=== PATIENT | male | born 1990 | race Caucasian/White ===

== ENCOUNTER 2019-09-15 16:15 | Emergency (ER) | payer SELFPAY ==
[2019-09-15] MEDS ORDERED: Sodium Chloride 0.9% 1,000 ML IV ONE (16:33)
[2019-09-15] MEDS ORDERED: HYDROmorphone 2 MG/ML Syringe IVPUSH ONE ×2 (16:33→17:55)
[2019-09-15] MEDS ORDERED: Ondansetron 4 MG/2 ML SDV IVPUSH ONE (16:33)
--- NOTE | 2019-09-15 16:37 | EDM.PDOC ---
ED HPI GENERAL MEDICAL PROBLEM - General Chief Complaint: Abdominal Pain Stated Complaint: ABDOMINAL PAIN Time Seen by Provider: 09/15/19 16:17 Source of Information: Reports: Patient History Limitations: Reports: No Limitations - History of Present Illness INITIAL COMMENTS - FREE TEXT/NARRATIVE: HISTORY OF PRESENT ILLNESS: Patient is a 29-year-old male who presents with abdominal pain and diarrhea for the past 3 days. Reports mid epigastric nonradiating abdominal pain which is waxing and waning in nature and currently 3 out of 10 in severity. It described as dull with occasional episodes of sharp pain. Reports associated diarrhea, multiple episodes per day with intermittent bright red blood. Denies any nausea or emesis. Denies any chest pain or dyspnea. Ports "hot flashes" but denies any documented fever at home. No neck stiffness or rash. No urinary symptoms. No prior abdominal surgeries. REVIEW OF SYSTEMS: Other than the symptoms associated with the present events, the following is reported with regard to recent health: General: (-) fever. HENT: (-) congestion. Respiratory: (-) cough. Cardiovascular: (-) chest pain. GI: (+) abdominal pain. : (-) urinary complaints. Musculoskeletal: (-) other aches or pains. Endocrine: (+) generalized fatigue Neurological: (-) localized weakness. Skin: (-) rash PAST MEDICAL HISTORY: reviewed as per nursing notes SOCIAL HISTORY: reviewed as per nursing notes, MEDICATIONS: Per nurse's note ALLERGIES: Per nurse's note, reviewed by me PHYSICAL EXAMINATION: GENERALIZED APPEARANCE: well developed, well nourished in mild to moderate distress VITAL SIGNS: Per nurse's note, reviewed by me SKIN: Warm, dry; (-) cyanosis; (-) rash. HEAD: (-) scalp swelling, (-) tenderness. EYES: (-) conjunctival pallor, (-) scleral icterus. ENMT: (-) stridor; mucous membranes moist. NECK: (-) tenderness, (-) stiffness, CHEST AND RESPIRATORY: (-) rales, (-) rhonchi, (-) wheezes; breath sounds equal bilaterally. HEART AND CARDIOVASCULAR: (-) irregularity; (-) murmur, (-) gallop. ABDOMEN AND GI: Soft; (+) diffuse tenderness, (-) guarding, (-) rebound, (-) palpable masses, (-) flank or CVAT RECTAL: hemoccult negative (control positive). stool brown, good rectal tone. assistant women's soccer coach: JAYLEEN German EXTREMITIES: (-) deformity, (-) edema. NEURO AND PSYCH: Alert. Cranial nerves grossly intact; strength symmetric. gait steady DIAGNOSTICS: CT abd/pelvis: read by radiologist, reviewed by myself Labs reviewed and resulted as below EMERGENCY DEPARTMENT COURSE AND TREATMENT: Patient's condition improved during Emergency Department evaluation. Given IVF, Zofran, Dilaudid. Labs and diagnostics ordered. The patient presents to the ED with abdominal pain. After history, physical exam, and diagnostic evaluation, the etiology for the pain is unclear. Laboratory data was ordered. Hemoccult Negative and hemoglobin/ hematocrit within normal limits. Patient hemodynamically stable. On serial exams, there are no peritoneal signs. Abdomen is soft without guarding or rebound. I think there is a very low probability of significant abdominal pathology based on today's evaluation. The patient is advised to have a followup tomorrow for a recheck and repeat abdominal exam. I also advised to return to the emergency department immediately for significant pain, fevers, not tolerating oral food or fluid, or new complaints. Also to return with any change in duration, severity, or character of abdominal pain. Patient expressed verbal understanding. PLAN AND FOLLOW-UP: Patient received written and verbal instructions regarding this condition. Return to ED immediately with any new or worsening symptoms. Follow up to be arranged by patient with pcp in 1days for further evaluation. Given discharge precautions. Patient expressed verbal understanding. abd Pain Score (Numeric/FACES): 3 - Related Data Allergies Allergy/AdvReac Type Severity Reaction Status Date / Time No Known Allergies Allergy Verified 09/15/19 16:32 Home Meds: Home Meds . [No Known Home Meds] 09/15/19 [History] ED ROS GENERAL - Review of Systems Review Of Systems: See Below (see dictation) ED EXAM, GI/ABD - Physical Exam Exam: See Below (see dictation) Course - Vital Signs Last Recorded V/S: Last Vital Signs Temp 99.0 F 09/15/19 16:29 Pulse 90 09/15/19 18:35 Resp 18 09/15/19 18:35 BP 138/95 H 09/15/19 18:35 Pulse Ox 97 09/15/19 18:35 - Orders/Labs/Meds Orders: Active Orders 24 hr Category Date Time Status Fecal Occult Blood Collection [RC] ASDIRECTED Care 09/15/19 16:33 Active Labs: Laboratory Tests 09/15/19 09/15/19 Range/Units 16:50 16:50 WBC 10.52 (4.0-11.0) K/uL RBC 5.16 (4.50-5.90) M/uL Hgb 14.8 (13.0-17.0) g/dL Hct 42.5 (38.0-50.0) % MCV 82.4 (80.0-98.0) fL MCH 28.7 (27.0-32.0) pg MCHC 34.8 (31.0-37.0) g/dL RDW Std Deviation 39.1 (28.0-62.0) fl RDW Coeff of Liliya 13 (11.0-15.0) % Plt Count 315 (150-400) K/uL MPV 9.00 (7.40-12.00) fL Neut % (Auto) 67.7 (48.0-80.0) % Lymph % (Auto) 26.1 (16.0-40.0) % [place] % (Auto) 5.9 (0.0-15.0) % Eos % (Auto) 0.1 (0.0-7.0) % Baso % (Auto) 0.2 (0.0-1.5) % Neut # (Auto) 7.1 H (1.4-5.7) K/uL Lymph # (Auto) 2.8 H (0.6-2.4) K/uL [place] # (Auto) 0.6 (0.0-0.8) K/uL Eos # (Auto) 0.0 (0.0-0.7) K/uL Baso # (Auto) 0.0 (0.0-0.1) K/uL Nucleated RBC % 0.0 /100WBC Nucleated RBCs # 0 K/uL Sodium 144 (136-148) mmol/L Potassium 3.5 (3.5-5.1) mmol/L Chloride 105 (98-107) mmol/L Carbon Dioxide 21.8 (21.0-32.0) mmol/L BUN 10 (7.0-18.0) mg/dL Creatinine 0.9 (0.8-1.3) mg/dL Est Cr Clr Drug Dosing 134.12 mL/min Estimated GFR (MDRD) > 60.0 ml/min Glucose 113 H (74-106) mg/dL Calcium 9.5 (8.5-10.1) mg/dL Total Bilirubin 0.4 (0.2-1.0) mg/dL AST 17 (15-37) IU/L ALT 42 (14-63) IU/L Alkaline Phosphatase 66 (46-116) U/L Total Protein 8.7 H (6.4-8.2) g/dL Albumin 4.8 (3.4-5.0) g/dL Globulin 3.9 (2.6-4.0) g/dL Albumin/Globulin Ratio 1.2 (0.9-1.6) Lipase 257 (73-393) U/L Meds: Medications Discontinued Medications Generic Name Dose Route Start Last Admin Trade Name Freq PRN Reason Stop Dose Admin Hydromorphone HCl 1 mg 09/15/19 16:33 09/15/19 16:57 Dilaudid IVPUSH 09/15/19 16:34 1 mg ONETIME ONE Administration Hydromorphone HCl 1 mg 09/15/19 17:55 09/15/19 18:34 Dilaudid IVPUSH 09/15/19 17:56 1 mg ONETIME ONE Administration Sodium Chloride 1,000 mls @ 1,000 mls/hr 09/15/19 16:33 09/15/19 16:55 Normal Saline IV 09/15/19 17:32 1,000 mls/hr .Bolus ONE Administration Iopamidol 100 ml 09/15/19 18:15 09/15/19 18:15 Isovue Multipack-370 (76%) IVPUSH 09/15/19 18:16 100 ml ONETIME STA Administration Ondansetron HCl 4 mg 09/15/19 16:33 09/15/19 16:55 Zofran IVPUSH 09/15/19 16:34 4 mg ONETIME ONE Administration Departure - Departure Time of Disposition: 18:57 Disposition: Home, Self-Care 01 Condition: Good Clinical Impression: Abdominal pain, Diarrhea - Discharge Information *PRESCRIPTION DRUG MONITORING PROGRAM REVIEWED*: Not Applicable *COPY OF PRESCRIPTION DRUG MONITORING REPORT IN PATIENT ARAMIS: Not Applicable Instructions: Diarrhea, Adult, Abdominal Pain, Adult, [id number] Referrals: Christian Gomez [Ordering Only Provider] - 1 Day () Forms: ED Department Discharge Additional Instructions: The following information is given to patients seen in the emergency department who are being discharged to home. This information is to outline your options for follow-up care. We provide all patients seen in our emergency department with a follow-up referral. The need for follow-up, as well as the timing and circumstances, are variable depending upon the specifics of your emergency department visit. If you don't have a primary care physician on staff, we will provide you with a referral. We always advise you to contact your personal physician following an emergency department visit to inform them of the circumstance of the visit and for follow-up with them and/or the need for any referrals to a consulting specialist. The emergency department will also refer you to a specialist when appropriate. This referral assures that you have the opportunity for follow-up care with a specialist. All of these measure are taken in an effort to provide you with optimal care, which includes your follow-up. Under all circumstances we always encourage you to contact your private physician who remains a resource for coordinating your care. When calling for follow-up care, please make the office aware that this follow-up is from your recent emergency room visit. If for any reason you are refused follow-up, please contact the [facility] Emergency Department at and asked to speak to the emergency department charge nurse. Sepsis Event Note - Evaluation Sepsis Screening Result: No Definite Risk - Focused Exam Vital Signs: Vital Signs Temp Pulse Resp BP Pulse Ox 09/15/19 18:35 90 18 138/95 H 97 09/15/19 17:48 103 H 18 136/89 98 09/15/19 16:29 99.0 F 100 16 146/109 H 97 Date Exam was Performed: 09/15/19 Time Exam was Performed: 18:57 - My Orders Last 24 Hours: My Active Orders 09/15/19 16:33 Fecal Occult Blood Collection [RC] ASDIRECTED - Assessment/Plan Last 24 Hours: My Active Orders 09/15/19 16:33 Fecal Occult Blood Collection [RC] ASDIRECTED
[2019-09-15 17:44] LABS: BLOOD UREA NITROGEN,BUN 10 mg/dL (7.0-18.0); CARBON DIOXIDE,CO2 21.8 mmol/L (21.0-32.0); CHLORIDE,CL 105 mmol/L (98-107); GLUCOSE RANDOM 113 mg/dL (74-106); LIPASE 257 U/L (73-393); POTASSIUM,K 3.5 mmol/L (3.5-5.1); SODIUM,NA 144 mmol/L (136-148)
[2019-09-15] MEDS ORDERED: Iopamidol 755 MG/ML 500 ML Multipack Bottle IVPUSH STA (18:15)
--- NOTE | 2019-09-15 18:55 | CT ---
CT abdomen and pelvis Technique: Multiple axial sections were obtained from above the dome of the diaphragm inferiorly through the pubic symphysis. Intravenous contrast was utilized. No oral contrast has been given. Findings: Visualized lung bases show nothing acute. Liver contains no focal abnormality. Spleen also appears within normal limits. Adrenal glands show no nodule. Pancreas shows no discrete abnormality. Soft tissue nodule noted off the tail of the pancreas believed to represent accessory splenic tissue. Kidneys show symmetric contrast enhancement without hydronephrosis or mass. Gallbladder contains no calcified gallstones. Aorta shows no aneurysm. No retroperitoneal adenopathy or mesenteric abnormalities are seen. No pelvic mass or adenopathy is seen. No free fluid or inflammatory change is seen. Appendix appears within normal limits. 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 Several minimal endplate concavities are seen superiorly within the thoracic spine which appear old. Impression: 1. Findings as noted above which are felt to be nonacute. 2. No additional abnormality is appreciated on CT study of the abdomen and pelvis. Diagnostic code #2 Study was dictated in [place] Standard Time
== END 2019-09-15 19:17 | disposition home or self-care (01) ==
LOC: MW.ED 16:15
DX: R10.13 Epigastric pain (principal); R19.7 Diarrhea, unspecified
CPT/HCPCS: 74177; 80053; 83690; 85025; 96361; 96374; 96375; 96376; 99284; J1170; J2405; J7030; Q9967

== ENCOUNTER 2019-09-19 20:36 | Observation (INO) | payer SELFPAY ==
--- NOTE | 2019-09-19 20:41 | EDM.PDOC ---
ED HPI GENERAL MEDICAL PROBLEM - General Chief Complaint: Abdominal Pain Stated Complaint: STOMACK PAIN Time Seen by Provider: 09/19/19 20:40 Source of Information: Reports: Patient History Limitations: Reports: No Limitations - History of Present Illness INITIAL COMMENTS - FREE TEXT/NARRATIVE: HISTORY AND PHYSICAL: History of present illness: Patient is a 29-year-old male who presents to the emergency room today with complaints of right upper abdominal pain. He reports that pain started just a few hours prior to arrival and describes it as sharp stabbing pain to the right upper quadrant/lower rib area. Patient was seen in the emergency room on 2019 for the same abdominal pain. He did have lab work and CT of the abdomen and pelvis, both of which were unremarkable. He was encouraged to follow-up with his primary care provider, which he did not do. States after leaving the emergency room last week he did feel improved with the exception of continuing to have multiple loose stools per day. Does continue to have intermittent streaking of "blood" in his stools. Has not had any blood in his stools today. Patient denies any fever, chills, headache, change in vision, syncope or near syncope. Denies any chest pain, back pain, shortness of breath or cough. Denies any vomiting, constipation or dysuria. Patient has been eating and drinking appropriately. Review of systems: As per history of present illness and below otherwise all systems reviewed and negative. Past medical history: As per history of present illness and as reviewed below otherwise noncontributory. Surgical history: As per history of present illness and as reviewed below otherwise noncontributory. Social history: See social history for further information Family history: As per history of present illness and as reviewed below otherwise noncontributory. Physical exam: General: Well-developed and well-nourished 29-year-old male. Alert and oriented. Patient is anxious appearing and grabbing at his stomach saying it is painful - unable to sit still on cot. Appears irritated with my physical examination although is cooperative with care. HEENT: Atraumatic, normocephalic, pupils equal and reactive bilaterally, negative for conjunctival pallor or scleral icterus, mucous membranes moist, throat clear, neck supple, nontender, trachea midline. No drooling or trismus noted. No meningeal signs. No hot potato voice noted. Lungs: Diminished to RLL otherwise clear to auscultation, breath sounds equal bilaterally, chest nontender. Heart: S1S2, regular rate and rhythm without overt murmur Abdomen: Soft, nondistended, right upper quadrant tenderness. Negative for masses or hepatosplenomegaly. Negative for costovertebral tenderness. Rectal: This was done with consent and a client resource specialist at the bedside. Negative fecal occult stool Pelvis: Stable nontender. Skin: Intact, warm, dry. No lesions or rashes noted. Extremities: Atraumatic, moves all extremities per self without difficulty or deficits, negative for cords or calf pain. Neurovascular unremarkable. Neuro: Awake, alert, oriented. Cranial nerves II through XII unremarkable. Cerebellum unremarkable. Motor and sensory unremarkable throughout. Exam nonfocal. Notes: He does have a leukocytosis. X-ray shows a right middle lobe pneumonia. Has a bladder infection. He states that his pain is "unbearable". Not have been able to get a stool sample while here. Due to the patient's physical presentation and diagnostics I will keep him for IV antibiotics and further observation and management. Dr. Moctezuma consulted and is agreeable to keeping this patient for further care. Patient is aware and agreeable. Diagnostics: CBC, CMP, Lipase, UA, chest x-ray, gonorrhea/chlamydia Therapeutics: IV fluids, Toradol, Ativan, Rocephin Dilaudid, azithromycin Impression: Pneumonia, Right UTI Diarrhea, unspecified Plan: Observation admission to [facility] Definitive disposition and diagnosis as appropriate pending reevaluation and review of above. Abdominal Pain Score (Numeric/FACES): 10 - Related Data Allergies Allergy/AdvReac Type Severity Reaction Status Date / Time No Known Allergies Allergy Verified 09/19/19 20:40 Home Meds: Home Meds Pantoprazole Sodium [Protonix] 40 mg PO DAILY #14 tablet. 09/15/19 [Rx] Past Medical History - Past Health History Medical/Surgical History: Denies Medical/Surgical History - Infectious Disease History Infectious Disease History: Reports: Chicken Pox Social & Family History - Family History Family Medical History: Noncontributory - Caffeine Use Caffeine Use: Reports: None ED ROS GENERAL - Review of Systems Review Of Systems: Comprehensive ROS is negative, except as noted in HPI. ED EXAM, GI/ABD - Physical Exam Exam: See Below (See dictation) Course - Vital Signs Last Recorded V/S: Last Vital Signs Temp 97.7 F 09/19/19 20:40 Pulse 110 H 09/19/19 21:38 Resp 20 09/19/19 21:38 BP 131/82 09/19/19 21:38 Pulse Ox 97 09/19/19 21:38 - Orders/Labs/Meds Orders: Active Orders 24 hr Category Date Time Status Admission Status [Patient Status] [ADT] Stat ADT 09/19/19 21:50 Ordered Fecal Occult Blood Collection [RC] ASDIRECTED Care 09/19/19 20:55 Active CAMPYLOBACTER CULT [MREF] Stat Lab 09/19/19 20:44 Ordered CHLAMYDIA AND GONORRHEA BY TMA Stat Lab 09/19/19 21:47 Ordered CULTURE BLOOD [BC] Stat Lab 09/19/19 20:54 Received CULTURE BLOOD [BC] Stat Lab 09/19/19 21:18 Received OVA & PARASITES BY IMMUNOASSAY [MREF] Stat Lab 09/19/19 20:44 Ordered STOOL CULTURE/SHIGA TOXIN [MREF] Stat Lab 09/19/19 20:44 Ordered cefTRIAXone [Rocephin in Dextrose,Iso-Osm 1 GM/50 ML] 1 Med 09/19/19 21:24 Active gm Premix Bag 1 bag IV ONETIME Blood Culture x2 Reflex Set [OM.PC] Stat Oth 09/19/19 20:47 Ordered Medication Orders Ceftriaxone Sodium/Dextrose 1 (gm/ Premix) 50 mls @ 100 mls/hr IV ONETIME ONE Stop: 09/19/19 21:53 Labs: Laboratory Tests 09/19/19 09/19/19 09/19/19 Range/Units 20:43 20:54 20:54 WBC 13.33 H (4.0-11.0) K/uL RBC 5.40 (4.50-5.90) M/uL Hgb 15.7 (13.0-17.0) g/dL Hct 44.0 (38.0-50.0) % MCV 81.5 (80.0-98.0) fL MCH 29.1 (27.0-32.0) pg MCHC 35.7 (31.0-37.0) g/dL RDW Std Deviation 40.2 (28.0-62.0) fl RDW Coeff of Liliya 14 (11.0-15.0) % Plt Count 324 (150-400) K/uL MPV 9.00 (7.40-12.00) fL Neut % (Auto) 62.8 (48.0-80.0) % Lymph % (Auto) 27.3 (16.0-40.0) % [place] % (Auto) 9.5 (0.0-15.0) % Eos % (Auto) 0.2 (0.0-7.0) % Baso % (Auto) 0.2 (0.0-1.5) % Neut # (Auto) 8.4 H (1.4-5.7) K/uL Lymph # (Auto) 3.6 H (0.6-2.4) K/uL [place] # (Auto) 1.3 H (0.0-0.8) K/uL Eos # (Auto) 0.0 (0.0-0.7) K/uL Baso # (Auto) 0.0 (0.0-0.1) K/uL Nucleated RBC % 0.0 /100WBC Nucleated RBCs # 0 K/uL Sodium 140 (136-148) mmol/L Potassium 3.2 L (3.5-5.1) mmol/L Chloride 101 (98-107) mmol/L Carbon Dioxide 17.8 L (21.0-32.0) mmol/L BUN 10 (7.0-18.0) mg/dL Creatinine 1.1 (0.8-1.3) mg/dL Est Cr Clr Drug Dosing 103.23 mL/min Estimated GFR (MDRD) > 60.0 ml/min Glucose 98 (74-106) mg/dL Calcium 9.5 (8.5-10.1) mg/dL Total Bilirubin 0.6 (0.2-1.0) mg/dL AST 21 (15-37) IU/L ALT 52 (14-63) IU/L Alkaline Phosphatase 67 (46-116) U/L Total Protein 9.1 H (6.4-8.2) g/dL Albumin 4.8 (3.4-5.0) g/dL Globulin 4.3 H (2.6-4.0) g/dL Albumin/Globulin Ratio 1.1 (0.9-1.6) Lipase 230 (73-393) U/L Urine Color YELLOW Urine Appearance HAZY Urine pH 6.0 (5.0-8.0) Ur Specific [place] >= 1.030 (1.001-1.035) Urine Protein >=300 H (NEGATIVE) mg/dL Urine Glucose (UA) NEGATIVE (NEGATIVE) mg/dL Urine Ketones NEGATIVE (NEGATIVE) mg/dL Urine Occult Blood SMALL H (NEGATIVE) Urine Nitrite NEGATIVE (NEGATIVE) Urine Bilirubin NEGATIVE (NEGATIVE) Urine Urobilinogen 0.2 (<2.0) EU/dL Ur Leukocyte Esterase NEGATIVE (NEGATIVE) Urine RBC 0-3 (0-2/HPF) Urine WBC 0-3 (0-5/HPF) Ur Epithelial Cells RARE (NONE-FEW) Urine Bacteria 2+ H (NEGATIVE) Urine Mucus MODERATE (NONE-MOD) Meds: Medications Generic Name Dose Route Start Last Admin Trade Name Freq PRN Reason Stop Dose Admin Ceftriaxone Sodium/Dextrose 1 50 mls @ 100 mls/hr 09/19/19 21:24 gm/ Premix IV 09/19/19 21:53 ONETIME ONE Discontinued Medications Generic Name Dose Route Start Last Admin Trade Name Freq PRN Reason Stop Dose Admin Azithromycin 500 mg 09/19/19 21:49 Zithromax PO 09/19/19 21:50 NOW STA Hydromorphone HCl 1 mg 09/19/19 21:46 Dilaudid IVPUSH 09/19/19 21:47 ONETIME ONE Sodium Chloride 1,000 mls @ 999 mls/hr 09/19/19 20:45 09/19/19 21:13 Normal Saline IV 09/19/19 21:45 999 mls/hr STAT ONE Administration Ketorolac Tromethamine 30 mg 09/19/19 20:45 09/19/19 21:13 Toradol IVPUSH 09/19/19 20:46 30 mg ONETIME ONE Administration Lorazepam 1 mg 09/19/19 20:54 09/19/19 21:13 Ativan IVPUSH 09/19/19 20:55 1 mg ONETIME ONE Administration Ondansetron HCl 4 mg 09/19/19 20:45 09/19/19 21:13 Zofran IVPUSH 09/19/19 20:46 4 mg ONETIME ONE Administration Departure - Departure Time of Disposition: 21:52 Disposition: Refer to Observation Clinical Impression: Pneumonia Qualifiers: Pneumonia type: due to unspecified organism Laterality: right Lung location: middle lobe of lung Qualified Code(s): J18.9 - Pneumonia, unspecified organism UTI (urinary tract infection) Qualifiers: Urinary tract infection type: acute cystitis Hematuria presence: without hematuria Qualified Code(s): N30.00 - Acute cystitis without hematuria Diarrhea Qualifiers: Diarrhea type: unspecified type Qualified Code(s): R19.7 - Diarrhea, unspecified - Discharge Information Referrals: PCP,None [Primary Care Provider] - Forms: ED Department Discharge Sepsis Event Note - Focused Exam Vital Signs: Vital Signs Temp Pulse Resp BP Pulse Ox 09/19/19 21:38 110 H 20 131/82 97 09/19/19 20:40 97.7 F 120 H 20 159/105 H 96 Date Exam was Performed: 09/19/19 Time Exam was Performed: 21:50 - My Orders Last 24 Hours: My Active Orders 09/19/19 20:44 CAMPYLOBACTER CULT [MREF] Stat OVA & PARASITES BY IMMUNOASSAY [MREF] Stat STOOL CULTURE/SHIGA TOXIN [MREF] Stat 09/19/19 20:47 Blood Culture x2 Reflex Set [OM.PC] Stat 09/19/19 20:54 CULTURE BLOOD [BC] Stat 09/19/19 20:55 Fecal Occult Blood Collection [RC] ASDIRECTED 09/19/19 21:18 CULTURE BLOOD [BC] Stat 09/19/19 21:24 cefTRIAXone [Rocephin in Dextrose,Iso-Osm 1 GM/50 ML] 1 gm Premix Bag 1 bag IV ONETIME 09/19/19 21:47 CHLAMYDIA AND GONORRHEA BY TMA Stat 09/19/19 21:50 Admission Status [Patient Status] [ADT] Stat - Assessment/Plan Last 24 Hours: My Active Orders 09/19/19 20:44 CAMPYLOBACTER CULT [MREF] Stat OVA & PARASITES BY IMMUNOASSAY [MREF] Stat STOOL CULTURE/SHIGA TOXIN [MREF] Stat 09/19/19 20:47 Blood Culture x2 Reflex Set [OM.PC] Stat 09/19/19 20:54 CULTURE BLOOD [BC] Stat 09/19/19 20:55 Fecal Occult Blood Collection [RC] ASDIRECTED 09/19/19 21:18 CULTURE BLOOD [BC] Stat 09/19/19 21:24 cefTRIAXone [Rocephin in Dextrose,Iso-Osm 1 GM/50 ML] 1 gm Premix Bag 1 bag IV ONETIME 09/19/19 21:47 CHLAMYDIA AND GONORRHEA BY TMA Stat 09/19/19 21:50 Admission Status [Patient Status] [ADT] Stat
[2019-09-19] MEDS ORDERED: Ketorolac 30 MG/ML SDV IVPUSH ONE (20:45)
[2019-09-19] MEDS ORDERED: Sodium Chloride 0.9% 1,000 ML IV ONE (20:45)
[2019-09-19] MEDS ORDERED: Ondansetron 4 MG/2 ML SDV IVPUSH ONE (20:45)
[2019-09-19] MEDS ORDERED: LORazepam 2 MG/ML SDV IVPUSH ONE (20:54)
[2019-09-19] MEDS ORDERED: cefTRIAXone 1 GM in Premix Bag 1 BAG IV ONE (21:24)
[2019-09-19 21:28] LABS: BLOOD UREA NITROGEN,BUN 10 mg/dL (7.0-18.0); CARBON DIOXIDE,CO2 17.8 mmol/L (21.0-32.0); CHLORIDE,CL 101 mmol/L (98-107); GLUCOSE RANDOM 98 mg/dL (74-106); LIPASE 230 U/L (73-393); POTASSIUM,K 3.2 mmol/L (3.5-5.1); SODIUM,NA 140 mmol/L (136-148)
--- NOTE | 2019-09-19 21:41 | CR ---
INDICATION: Acute chest pain. COMPARISON: None. FINDINGS/IMPRESSION: Chest, two views. Suggestion of minimal patchy infiltrate in the right middle lobe obscuring the right heart border, suspicious for small area of pneumonia. Left lung appears clear. No pleural effusions. Normal heart size. Unremarkable bony structures. Dictated by Cong Flores MD @ 09/19/2019 9:38:02 PM Dictated by: Cong Flores MD @ 09/19/2019 21:38:47 (Electronically Signed)
[2019-09-19] MEDS ORDERED: HYDROmorphone 1 MG/ML Syringe IVPUSH ONE (21:46)
[2019-09-19] MEDS ORDERED: Azithromycin 250 MG Tab PO STA (21:49)
[2019-09-20] MEDS ORDERED: Acetaminophen 325 MG Tab PO PRN (00:20)
[2019-09-20] MEDS ORDERED: Ibuprofen 400 MG Tab PO PRN (00:23)
[2019-09-20] MEDS: Sodium Chloride 0.9% 1,000 ML IV SCH ×2 (00:53→10:17)
[2019-09-20] MEDS ORDERED: Ondansetron 4 MG/2 ML SDV IVPUSH PRN (01:19)
[2019-09-20] MEDS ORDERED: Pantoprazole 40 MG in Sodium Chloride 0.9% 10 ML IV ONE (02:57)
[2019-09-20] MEDS: Morphine 2 MG/ML Syringe IVPUSH PRN ×2 (03:23→08:16)
[2019-09-20 07:12] LABS: BLOOD UREA NITROGEN,BUN 13 mg/dL (7.0-18.0); CARBON DIOXIDE,CO2 24.4 mmol/L (21.0-32.0); CHLORIDE,CL 106 mmol/L (98-107); GLUCOSE RANDOM 95 mg/dL (74-106); POTASSIUM,K 3.4 mmol/L (3.5-5.1); SODIUM,NA 142 mmol/L (136-148)
[2019-09-20] MEDS: Morphine 4 MG/ML Syringe IVPUSH PRN ×4 (10:22→20:49)
--- NOTE | 2019-09-20 12:07 | PCM.HP.2 ---
H&P History of Present Illness - General Date of Service: 09/20/19 Admit Problem/Dx: Admission Diagnosis/Problem Admission Diagnosis/Problem Pneumonia Source of Information: Patient History Limitations: Reports: No Limitations - History of Present Illness Initial Comments - Free Text/Narative: This 29 year old male with no significant pmh presented to the ED with complaints of diffuse abdominal pain and 15-20 diarrhea stools daily with some noted blood. He reports he was seen in the ED a week or so ago with similar symptoms, CT was obtained which was negative and he was discharged home. He said he did improve slightly but then the pain started to increase again. he denies overt fevers or chills. No chest pain or SOB. Reports stools are brown and always diarrhea, having upwards of 15 daily. Reports nausea with eating and poor appetite. When he does eat he feels bloated and distended. He denies recent travel or antibiotic use, has eating out in the past few weeks prior to falling ill. he denies cough or URI symptoms. Just overall feels ill and has diffuse abdominal pain. No alcohol or recreational drug use and no tobacco use. In the ED leukocytosis noted at 13,330. K+3.2, bicarb 17. CXR showed possible R infiltrate. VS remained stable, afebrile, Rocephin and Azithromycin given in the ED. NS 125 and Morphine for pain. he will be admitted for abdominal pain and possible CAP. Abdominal Pain Score (Numeric/FACES): 6 - Related Data Allergies/Adverse Reactions: Allergies Allergy/AdvReac Type Severity Reaction Status Date / Time No Known Allergies Allergy Verified 09/19/19 23:43 Home Medications: Home Meds Pantoprazole Sodium [Protonix] 40 mg PO DAILY #14 tablet. 09/15/19 [Rx] Past Medical History - Past Health History Medical/Surgical History: Denies Medical/Surgical History Cardiovascular History: Reports: None. Denies: Arrhythmia, Blood Clots/VTE/DVT , CAD, Hypertension, MS Respiratory History: Reports: None. Denies: Asthma, SOB Musculoskeletal History: Reports: None Endocrine/Metabolic History: Reports: None. Denies: Obesity/BMI 30+ - Infectious Disease History Infectious Disease History: Reports: Chicken Pox Social & Family History - Family History Family Medical History: Noncontributory - Tobacco Use Smoking Status *Q: Never Smoker Second Hand Smoke Exposure: No - Caffeine Use Caffeine Use: Reports: Coffee - Recreational Drug Use Recreational Drug Use: No H&P Review of Systems - Review of Systems: Review Of Systems: See Below General: Reports: Malaise. Denies: Fever, Chills HEENT: Reports: No Symptoms. Denies: Headaches, Sinus Congestion Pulmonary: Reports: No Symptoms. Denies: Shortness of Breath Cardiovascular: Reports: No Symptoms. Denies: Chest Pain Gastrointestinal: Reports: Abdominal Pain, Bloody Stool, Diarrhea, Decreased Appetite, Distension, Nausea, Vomiting. Denies: Black Stool Genitourinary: Reports: No Symptoms. Denies: Dysuria, Frequency Skin: Reports: No Symptoms Neurological: Reports: No Symptoms Hematologic/Lymphatic: Reports: No Symptoms Immunologic: Reports: No Symptoms Exam - Exam Exam: See Below - Vital Signs Vital Signs: Last Vital Signs Temp 97.1 F 09/20/19 08:00 Pulse 89 09/20/19 08:00 Resp 20 09/20/19 08:00 BP 146/89 H 09/20/19 08:00 Pulse Ox 97 09/20/19 08:00 Weight: 98.458 kg - Exam General: Alert, Oriented, Cooperative HEENT: Conjunctiva Clear, Pupils Equal. No: Mucosa Moist & Warm [place] (dry) Lungs: Clear to Auscultation, Normal Respiratory Effort Cardiovascular: Regular Rate, Regular Rhythm GI/Abdominal Exam: Soft, Tender (diffusely). No: Normal Bowel Sounds ( hyperactive) Back Exam: Normal Inspection, Full Range of Motion Extremities: Normal Inspection, Normal Range of Motion, Non-Tender, No Pedal Edema Neurological: Cranial Nerves Intact Neuro Extensive - Mental Status: Alert, Oriented x3 Psychiatric: Alert, Normal Affect, Normal Mood - Patient Data Lab Results Last 24 hrs: Laboratory Results - last 24 hr 09/19/19 09/19/19 09/19/19 Range/Units 20:43 20:54 20:54 WBC 13.33 H (4.0-11.0) K/uL RBC 5.40 (4.50-5.90) M/uL Hgb 15.7 (13.0-17.0) g/dL Hct 44.0 (38.0-50.0) % MCV 81.5 (80.0-98.0) fL MCH 29.1 (27.0-32.0) pg MCHC 35.7 (31.0-37.0) g/dL RDW Std Deviation 40.2 (28.0-62.0) fl RDW Coeff of Liliya 14 (11.0-15.0) % Plt Count 324 (150-400) K/uL MPV 9.00 (7.40-12.00) fL Neut % (Auto) 62.8 (48.0-80.0) % Lymph % (Auto) 27.3 (16.0-40.0) % [place] % (Auto) 9.5 (0.0-15.0) % Eos % (Auto) 0.2 (0.0-7.0) % Baso % (Auto) 0.2 (0.0-1.5) % Neut # (Auto) 8.4 H (1.4-5.7) K/uL Lymph # (Auto) 3.6 H (0.6-2.4) K/uL [place] # (Auto) 1.3 H (0.0-0.8) K/uL Eos # (Auto) 0.0 (0.0-0.7) K/uL Baso # (Auto) 0.0 (0.0-0.1) K/uL Nucleated RBC % 0.0 /100WBC Nucleated RBCs # 0 K/uL Sodium 140 (136-148) mmol/L Potassium 3.2 L (3.5-5.1) mmol/L Chloride 101 (98-107) mmol/L Carbon Dioxide 17.8 L (21.0-32.0) mmol/L BUN 10 (7.0-18.0) mg/dL Creatinine 1.1 (0.8-1.3) mg/dL Est Cr Clr Drug Dosing 103.23 mL/min Estimated GFR (MDRD) > 60.0 ml/min Glucose 98 (74-106) mg/dL Calcium 9.5 (8.5-10.1) mg/dL Total Bilirubin 0.6 (0.2-1.0) mg/dL AST 21 (15-37) IU/L ALT 52 (14-63) IU/L Alkaline Phosphatase 67 (46-116) U/L Total Protein 9.1 H (6.4-8.2) g/dL Albumin 4.8 (3.4-5.0) g/dL Globulin 4.3 H (2.6-4.0) g/dL Albumin/Globulin Ratio 1.1 (0.9-1.6) Lipase 230 (73-393) U/L Urine Color YELLOW Urine Appearance HAZY Urine pH 6.0 (5.0-8.0) Ur Specific [place] >= 1.030 (1.001-1.035) Urine Protein >=300 H (NEGATIVE) mg/dL Urine Glucose (UA) NEGATIVE (NEGATIVE) mg/dL Urine Ketones NEGATIVE (NEGATIVE) mg/dL Urine Occult Blood SMALL H (NEGATIVE) Urine Nitrite NEGATIVE (NEGATIVE) Urine Bilirubin NEGATIVE (NEGATIVE) Urine Urobilinogen 0.2 (<2.0) EU/dL Ur Leukocyte Esterase NEGATIVE (NEGATIVE) Urine RBC 0-3 (0-2/HPF) Urine WBC 0-3 (0-5/HPF) Ur Epithelial Cells RARE (NONE-FEW) Urine Bacteria 2+ H (NEGATIVE) Urine Mucus MODERATE (NONE-MOD) 09/20/19 09/20/19 Range/Units 06:07 06:07 WBC 8.53 (4.0-11.0) K/uL RBC 4.78 (4.50-5.90) M/uL Hgb 13.7 (13.0-17.0) g/dL Hct 40.2 (38.0-50.0) % MCV 84.1 (80.0-98.0) fL MCH 28.7 (27.0-32.0) pg MCHC 34.1 (31.0-37.0) g/dL RDW Std Deviation 41.6 (28.0-62.0) fl RDW Coeff of Liliya 14 (11.0-15.0) % Plt Count 255 (150-400) K/uL MPV 9.10 (7.40-12.00) fL Neut % (Auto) 51.3 (48.0-80.0) % Lymph % (Auto) 33.9 (16.0-40.0) % [place] % (Auto) 13.5 (0.0-15.0) % Eos % (Auto) 1.1 (0.0-7.0) % Baso % (Auto) 0.2 (0.0-1.5) % Neut # (Auto) 4.4 (1.4-5.7) K/uL Lymph # (Auto) 2.9 H (0.6-2.4) K/uL [place] # (Auto) 1.2 H (0.0-0.8) K/uL Eos # (Auto) 0.1 (0.0-0.7) K/uL Baso # (Auto) 0.0 (0.0-0.1) K/uL Nucleated RBC % 0.0 /100WBC Nucleated RBCs # 0 K/uL Sodium 142 (136-148) mmol/L Potassium 3.4 L (3.5-5.1) mmol/L Chloride 106 (98-107) mmol/L Carbon Dioxide 24.4 (21.0-32.0) mmol/L BUN 13 (7.0-18.0) mg/dL Creatinine 0.9 (0.8-1.3) mg/dL Est Cr Clr Drug Dosing 134.12 mL/min Estimated GFR (MDRD) > 60.0 ml/min Glucose 95 (74-106) mg/dL Calcium 8.7 (8.5-10.1) mg/dL Total Bilirubin 0.6 (0.2-1.0) mg/dL AST 14 L (15-37) IU/L ALT 41 (14-63) IU/L Alkaline Phosphatase 54 (46-116) U/L Total Protein 7.2 (6.4-8.2) g/dL Albumin 3.7 (3.4-5.0) g/dL Globulin 3.5 (2.6-4.0) g/dL Albumin/Globulin Ratio 1.1 (0.9-1.6) Lipase (73-393) U/L Urine Color Urine Appearance Urine pH (5.0-8.0) Ur Specific [place] (1.001-1.035) Urine Protein (NEGATIVE) mg/dL Urine Glucose (UA) (NEGATIVE) mg/dL Urine Ketones (NEGATIVE) mg/dL Urine Occult Blood (NEGATIVE) Urine Nitrite (NEGATIVE) Urine Bilirubin (NEGATIVE) Urine Urobilinogen (<2.0) EU/dL Ur Leukocyte Esterase (NEGATIVE) Urine RBC (0-2/HPF) Urine WBC (0-5/HPF) Ur Epithelial Cells (NONE-FEW) Urine Bacteria (NEGATIVE) Urine Mucus (NONE-MOD) Result Diagrams: 09/20/19 06:07 09/20/19 06:07 Sepsis Event Note - Evaluation Sepsis Screening Result: No Definite Risk - Focused Exam Vital Signs: Vital Signs Temp Pulse Resp BP Pulse Ox 09/20/19 08:00 97.1 F 89 20 146/89 H 97 09/20/19 03:44 98.0 F 94 16 140/88 97 Date Exam was Performed: 09/20/19 Time Exam was Performed: 12:02 - Problem List (1) Diarrhea SNOMED Code(s): 54940444 ICD Code: R19.7 - DIARRHEA, UNSPECIFIED Status: Acute Current Visit: Yes Qualifiers: Diarrhea type: unspecified type Qualified Code(s): R19.7 - Diarrhea, unspecified (2) Pneumonia SNOMED Code(s): 802130197 ICD Code: J18.9 - PNEUMONIA, UNSPECIFIED ORGANISM Status: Acute Current Visit: Yes Qualifiers: Pneumonia type: due to unspecified organism Laterality: right Lung location: middle lobe of lung Qualified Code(s): J18.9 - Pneumonia, unspecified organism (3) Abdominal pain SNOMED Code(s): 90078565 ICD Code: R10.9 - UNSPECIFIED ABDOMINAL PAIN Status: Acute Current Visit : No Problem List Initiated/Reviewed/Updated: Yes Orders Last 24hrs: Active Orders 24 hr Category Date Time Status Admission Status [Patient Status] [ADT] Stat ADT 09/19/19 21:50 Active Clear Liquid Diet [DIET] Diet 09/20/19 Lunch Active Abdomen Ltd [US] Routine Exams 09/20/19 02:55 Ordered C DIFFICILE AG/TOXIN W/REFLEX [RM] Routine Lab 09/20/19 11:51 Ordered CHLAMYDIA AND GONORRHEA BY TMA Stat Lab 09/19/19 20:43 Received CULTURE BLOOD [BC] Stat Lab 09/19/19 20:54 Received CULTURE BLOOD [BC] Stat Lab 09/19/19 21:18 Received CULTURE URINE [RM] Routine Lab 09/20/19 02:59 Received OVA & PARASITES BY IMMUNOASSAY [MREF] Stat Lab 09/20/19 03:34 Received STOOL CULTURE/SHIGA TOXIN [MREF] Stat Lab 09/20/19 03:34 Received Acetaminophen [Tylenol] Med 09/20/19 00:20 Active 650 mg PO Q6H PRN Morphine Med 09/20/19 08:52 Active 4 mg IVPUSH Q2H PRN Ondansetron [Zofran] Med 09/20/19 01:19 Active 4 mg IVPUSH Q4H PRN Sodium Chloride 0.9% [Normal Saline] 1,000 ml Med 09/20/19 00:30 Active IV ASDIRECTED Blood Culture x2 Reflex Set [OM.PC] Stat Oth 09/19/19 20:47 Ordered Medication Orders Acetaminophen (Tylenol) 650 mg PO Q6H PRN PRN Reason: Pain/Fever Last Admin: 09/20/19 00:51 Dose: 650 mg Sodium Chloride (Normal Saline) 1,000 mls @ 125 mls/hr IV ASDIRECTED KEITH Last Admin: 09/20/19 10:17 Dose: 125 mls/hr Infusion: 09/20/19 08:53 Dose: 125 mls/hr Admin: 09/20/19 00:53 Dose: 125 mls/hr Morphine Sulfate (Morphine) 4 mg IVPUSH Q2H PRN PRN Reason: Pain Last Admin: 09/20/19 10:22 Dose: 4 mg Ondansetron HCl (Zofran) 4 mg IVPUSH Q4H PRN PRN Reason: Nausea Last Admin: 09/20/19 08:16 Dose: 4 mg Assessment/Plan Comment:: This 29 year old male admitted with abdominal pain, diarrhea and possible CAP 1. Abdominal pain: Continues to have abdominal pain. US order to evaluate gallbladder. If US inconclusive may need to repeat CT scan with contrast. Also consider colonoscopy due to family hx of ulcerative colitis. Stool studies pending. IVFs for now, CL diet. Morphine for pain PRN. Zofran for nausea. Add Antibiotics Levaquin and Flagyl. 2. Possible CAP: No symptoms. Continue , will switch to Levaquin. VTE prophylaxis: SCDs and ambulation. - Mortality Measure Prognosis:: Good
[2019-09-20] MEDS: metroNIDAZOLE/Normal Saline 500 MG in Premix Bag 1 BAG IV SCH ×2 (12:40→17:01)
[2019-09-20] MEDS ORDERED: Levofloxacin/Dextrose 5%-Water 500 MG in Premix Bag 1 BAG IV SCH (13:30)
--- NOTE | 2019-09-20 13:44 | US ---
Limited abdominal ultrasound: Multiple real-time images of the right upper abdomen were obtained. Liver contains no focal parenchymal abnormality. Right kidney shows no hydronephrosis or mass. Right kidney has a length of 13.1 cm. Gallbladder shows no shadowing gallstones. No gallbladder wall thickening or biliary duct dilatation is seen. Pancreas is incompletely seen. Visualized portions of the pancreas are unremarkable. Impression: 1. No abnormality is identified on right upper quadrant abdominal ultrasound. Diagnostic code #1 This report was dictated in [place] Standard Time
--- NOTE | 2019-09-20 17:01 | PCM.SN ---
- Free Text/Narrative Note: pt seen, chart reviewd; does not justify inpatiend endoscopy at this stage; if discharge, fu w me 2 - 3 wks, when diarrhea resolved, then discuss about endoscopy; pt's history does not support anything for inflamatory bowel disease , it does has a weak family trait as well as bimodel distribution of 20 -29 yo for male. pt would benefit from outpatient colonoscopy; will sign off, recall if question; [id number]
--- NOTE | 2019-09-20 18:43 | CONS ---
DATE OF CONSULTATION: 09/20/2019 DATE OF : 1990 PRIMARY CARE PHYSICIAN: Declined PCP REASON FOR CONSULTATION: Consult was called, the patient was seen shortly after. Concerning question is possible endoscopy study. HISTORY OF PRESENT ILLNESS: The patient is a 29-year-old gentleman and seen in the emergency room apparently like twice for increased diarrhea. The patient reports that he also sees blood over there and with poor appetite. Finally, the patient also remarked that his parent also has colitis and would like to have a colonoscopy for a diagnosis. ALLERGIES: Please refer to nursing for details. MEDICATION: Please refer to nursing for details. PAST MEDICAL HISTORY: Denied diabetes, NC, CVA, hypertension. PAST SURGICAL HISTORY: No abdominal surgery. FAMILY HISTORY: As noted above. He may have family track of ulcerative colitis. REVIEW OF SYSTEMS: The patient denies any fistula, fissure, or any anal disease and denied abdominal pain at a young age. PHYSICAL EXAMINATION: GENERAL: A very pleasant and nice gentleman in no acute distress. HEENT: Normocephalic, atraumatic. Sclerae anicteric. LUNGS: Clear to auscultation. HEART: Regular rate and rhythm. ABDOMEN: Soft, nondistended. No pulsating, tender, midline abdominal structure. RECTAL: On perineum inspection, there is no fissure, fistula, or anorectal disease. LABORATORY DATA: White count is 8, H and H are 14 and 40, and platelets are 255. BUN is 13, creatinine is 0.9. IMPRESSION: Increased diarrhea, apparently is getting better. Inflammatory bowel disease, Crohn's, or ulcerative colitis does have a bimodal distribution. Most common in people 20 to 29 years old or 70 to 79 years old. For the patient's current problem of diarrhea, we will treat symptomatically. The patient requests colonoscopy. As he is not from this area, would like to have it done, this does not agree with the patient's clinical situation. We will have the patient seen in the office and discuss the clinical implication as well as bowel prep for endoscopy study. The patient voiced understanding. We will sign off. If the patient discharged, please have the patient followup with me in 2 to 3 weeks for possible endoscopy study. The patient's clinical history does not suggest a strong type of inflammatory bowel disease. Thanks for the consult and care of this pleasant gentleman. As always, thank you for the referral. We will sign off. Recall if question. ADRIEN / FREDDIE /[id number]
[2019-09-20] MEDS: oxyCODONE 5 MG Tab PO PRN (18:58)
[2019-09-21] MEDS: Pantoprazole 40 MG in Sodium Chloride 0.9% 10 ML IV SCH ×2 (00:22→09:07)
[2019-09-21] MEDS: oxyCODONE 5 MG Tab PO PRN ×2 (00:25→11:27)
[2019-09-21] MEDS: metroNIDAZOLE/Normal Saline 500 MG in Premix Bag 1 BAG IV SCH ×3 (00:27→11:19)
[2019-09-21] MEDS: Morphine 4 MG/ML Syringe IVPUSH PRN ×2 (05:49→09:11)
[2019-09-21 06:46] LABS: BLOOD UREA NITROGEN,BUN 6 mg/dL (7.0-18.0); CARBON DIOXIDE,CO2 22.7 mmol/L (21.0-32.0); CHLORIDE,CL 108 mmol/L (98-107); GLUCOSE RANDOM 94 mg/dL (74-106); POTASSIUM,K 3.4 mmol/L (3.5-5.1); SODIUM,NA 143 mmol/L (136-148)
--- NOTE | 2019-09-21 08:14 | PCM.PN ---
- General Info Date of Service: 09/21/19 Subjective Update: Patient reports mild improvement in pain but still reports 10-15 loose/watery bowel movements yesterday. Denies nausea/vomiting. - Review of Systems General: Reports: No Symptoms HEENT: Reports: No Symptoms Pulmonary: Reports: No Symptoms Cardiovascular: Reports: No Symptoms Gastrointestinal: Reports: Abdominal Pain, Diarrhea. Denies: Nausea, Vomiting Genitourinary: Reports: No Symptoms Musculoskeletal: Reports: No Symptoms Skin: Reports: No Symptoms Neurological: Reports: No Symptoms Psychiatric: Reports: No Symptoms - Patient Data Vitals - Most Recent: Last Vital Signs Temp 98 F 09/21/19 03:39 Pulse 87 09/21/19 03:39 Resp 17 09/21/19 03:39 BP 140/72 09/21/19 03:39 Pulse Ox 97 09/21/19 03:39 Weight - Most Recent: 98.458 kg I&O - Last 24 Hours: Intake & Output 09/20/19 09/21/19 09/21/19 22:59 06:59 14:59 Intake Total 1893 1169 Output Total 300 Balance 1893 869 Lab Results Last 24 Hours: Laboratory Results - last 24 hr 09/21/19 09/21/19 Range/Units 05:40 05:40 WBC 6.88 (4.0-11.0) K/uL RBC 4.61 (4.50-5.90) M/uL Hgb 13.1 (13.0-17.0) g/dL Hct 38.5 (38.0-50.0) % MCV 83.5 (80.0-98.0) fL MCH 28.4 (27.0-32.0) pg MCHC 34.0 (31.0-37.0) g/dL RDW Std Deviation 40.7 (28.0-62.0) fl RDW Coeff of Liliya 14 (11.0-15.0) % Plt Count 204 (150-400) K/uL MPV 8.90 (7.40-12.00) fL Neut % (Auto) 50.5 (48.0-80.0) % Lymph % (Auto) 35.8 (16.0-40.0) % [place] % (Auto) 12.6 (0.0-15.0) % Eos % (Auto) 1.0 (0.0-7.0) % Baso % (Auto) 0.1 (0.0-1.5) % Neut # (Auto) 3.5 (1.4-5.7) K/uL Lymph # (Auto) 2.5 H (0.6-2.4) K/uL [place] # (Auto) 0.9 H (0.0-0.8) K/uL Eos # (Auto) 0.1 (0.0-0.7) K/uL Baso # (Auto) 0.0 (0.0-0.1) K/uL Nucleated RBC % 0.0 /100WBC Nucleated RBCs # 0 K/uL Sodium 143 (136-148) mmol/L Potassium 3.4 L (3.5-5.1) mmol/L Chloride 108 H (98-107) mmol/L Carbon Dioxide 22.7 (21.0-32.0) mmol/L BUN 6 L (7.0-18.0) mg/dL Creatinine 0.8 (0.8-1.3) mg/dL Est Cr Clr Drug Dosing 150.89 mL/min Estimated GFR (MDRD) > 60.0 ml/min Glucose 94 (74-106) mg/dL Calcium 8.5 (8.5-10.1) mg/dL Total Bilirubin 0.8 (0.2-1.0) mg/dL AST 12 L (15-37) IU/L ALT 32 (14-63) IU/L Alkaline Phosphatase 53 (46-116) U/L Total Protein 6.7 (6.4-8.2) g/dL Albumin 3.4 (3.4-5.0) g/dL Globulin 3.3 (2.6-4.0) g/dL Albumin/Globulin Ratio 1.0 (0.9-1.6) Darron Results Last 24 Hours: Microbiology 09/19/19 20:43 Urine Culture - Final Urine, Bladder MIXED FLIP 1,000-10,000 CFU/ML 09/19/19 21:18 Aerobic Blood Culture - Preliminary Blood - Venous - Lab Draw NO GROWTH AFTER 1 DAY Anaerobic Blood Culture - Preliminary NO GROWTH AFTER 1 DAY 09/19/19 20:54 Aerobic Blood Culture - Preliminary Blood - Venous NO GROWTH AFTER 1 DAY Anaerobic Blood Culture - Preliminary NO GROWTH AFTER 1 DAY 09/20/19 03:34 C. difficile Antigen & Toxins A,B - Final Stool / Feces Med Orders - Current: Current Medications Acetaminophen (Tylenol) 650 mg PO Q6H PRN PRN Reason: Pain/Fever Last Admin: 09/20/19 00:51 Dose: 650 mg Sodium Chloride (Normal Saline) 1,000 mls @ 125 mls/hr IV ASDIRECTED [facility] Last Admin: 09/20/19 10:17 Dose: 125 mls/hr Levofloxacin/Dextrose 500 mg/ (Premix) 100 mls @ 100 mls/hr IV Q24H [facility] Last Admin: 09/20/19 14:20 Dose: 100 mls/hr Metronidazole 500 mg/ Premix 100 mls @ 100 mls/hr IV QID [facility] Last Admin: 09/21/19 05:53 Dose: 100 mls/hr Pantoprazole Sodium 40 mg/ (Sodium Chloride) 10 mls @ 300 mls/hr IV DAILY [facility] Last Admin: 09/21/19 00:22 Dose: 300 mls/hr Morphine Sulfate (Morphine) 4 mg IVPUSH Q3H PRN PRN Reason: Pain Last Admin: 09/21/19 05:49 Dose: 4 mg Ondansetron HCl (Zofran) 4 mg IVPUSH Q4H PRN PRN Reason: Nausea Last Admin: 09/20/19 08:16 Dose: 4 mg Oxycodone HCl (Oxycodone) 5 mg PO Q4H PRN PRN Reason: Pain (severe 7-10) Last Admin: 09/21/19 00:25 Dose: 5 mg Discontinued Medications Azithromycin (Zithromax) 500 mg PO NOW STA Stop: 09/19/19 21:50 Last Admin: 09/19/19 21:58 Dose: 500 mg Hydromorphone HCl (Dilaudid) 1 mg IVPUSH ONETIME ONE Stop: 09/19/19 21:47 Last Admin: 09/19/19 21:53 Dose: 1 mg Sodium Chloride (Normal Saline) 1,000 mls @ 999 mls/hr IV STAT ONE Stop: 09/19/19 21:45 Last Admin: 09/19/19 21:13 Dose: 999 mls/hr Ceftriaxone Sodium/Dextrose 1 (gm/ Premix) 50 mls @ 100 mls/hr IV ONETIME ONE Stop: 09/19/19 21:53 Last Admin: 09/19/19 21:51 Dose: 100 mls/hr Pantoprazole Sodium 40 mg/ (Sodium Chloride) 10 mls @ 300 mls/hr IV NOW ONE Stop: 09/20/19 02:58 Last Admin: 09/20/19 03:16 Dose: 300 mls/hr Ibuprofen (Motrin) 400 mg PO Q6H PRN PRN Reason: Pain Ketorolac Tromethamine (Toradol) 30 mg IVPUSH ONETIME ONE Stop: 09/19/19 20:46 Last Admin: 09/19/19 21:13 Dose: 30 mg Lorazepam (Ativan) 1 mg IVPUSH ONETIME ONE Stop: 09/19/19 20:55 Last Admin: 09/19/19 21:13 Dose: 1 mg Morphine Sulfate (Morphine) 2 mg IVPUSH Q2H PRN PRN Reason: Pain Last Admin: 09/20/19 08:16 Dose: 2 mg Morphine Sulfate (Morphine) 4 mg IVPUSH Q2H PRN PRN Reason: Pain Last Admin: 09/20/19 12:49 Dose: 4 mg Ondansetron HCl (Zofran) 4 mg IVPUSH ONETIME ONE Stop: 09/19/19 20:46 Last Admin: 09/19/19 21:13 Dose: 4 mg - Exam General: Alert, Oriented, Cooperative Lungs: Clear to Auscultation, Normal Respiratory Effort Cardiovascular: Regular Rate, Regular Rhythm GI/Abdominal Exam: Normal Bowel Sounds, Soft, No Distention, Tender (diffusely) Extremities: No Pedal Edema Skin: Warm, Dry, Intact Neurological: No New Focal Deficit Psy/Mental Status: Alert, Normal Affect, Normal Mood Sepsis Event Note - Evaluation Sepsis Screening Result: No Definite Risk - Focused Exam Vital Signs: Vital Signs Temp Pulse Resp BP BP Pulse Ox 09/21/19 03:39 98 F 87 17 140/72 97 09/21/19 00:31 98 F 89 18 143/76 H 97 Date Exam was Performed: 09/21/19 Time Exam was Performed: 08:11 - Problem List Review Problem List Initiated/Reviewed/Updated: Yes - My Orders Last 24 Hours: My Active Orders 09/20/19 18:40 oxyCODONE 5 mg PO Q4H PRN - Plan Plan:: This 29 year old male admitted with abdominal pain, diarrhea and possible CAP 1. Abdominal pain: Continues to have abdominal pain. US showed no acute process.. If US inconclusive may need to repeat CT scan with contrast. Dr. Burden consulted and recommended outpatient colonoscopy.C. Diff negative, additional stool studies pending. IVFs for now, CL diet. Morphine/oxycodone for pain PRN. Zofran for nausea. Continue antibiotics Levaquin and Flagyl. 2. Possible CAP: No symptoms. Continue antibiotics VTE prophylaxis: SCDs and ambulation.
[2019-09-21] MEDS: Sodium Chloride 0.9% 1,000 ML IV SCH (09:16)
--- NOTE | 2019-09-21 11:40 | PCM.DCSUM1 ---
<Reina Hinton - Last Filed: 09/21/19 12:39> Discharge Summary - Hospital Course HPI Initial Comments: Admission Date: 09/20/19 Discharge Date: 09/21/19 Admission Diagnosis: 1. Abdominal pain with nausea and diarrhea 2. Possible CAP Discharge Diagnosis: 1. Abdominal pain with nausea and diarrhea- improved 2. Possible CAP Procedures: None Consults: None Hospital Course: The patient is a 29 year old male who presented to the ER with abdominal pain, diarrhea, nausea. Had been seen in the ER several days prior and labs/ CT ab/pelvis showed no significant abnormality. In the ED leukocytosis noted at 13,330. K+3.2, bicarb 17. CXR showed possible R infiltrate. VS remained stable, afebrile, Rocephin and Azithromycin given in the ED. NS 125 and Morphine for pain. Was admitted to the medical floor. For abdominal pain, performed US which was negative for acute process. Stool studies were ordered, Cdiff negative, others pending at time of discharge. Dr. Burden, general surgeon, consulted to evaluate for possible colonoscopy as inpatient but he recommended outpatient. Continued on PPI. Was started on Levaquin for possible CAP and added Flagyl to cover any abdominal bugs. Over the course of his stay, his abdominal pain/nausea/diarrhea had improved and he was tolerating an oral diet. Patient felt comfortable being discharged. Disposition: Home Discharge Condition: vitals stable, tolerating oral diet, ambulating without difficulty, symptom improvement Discharge Instructions: regular diet as tolerated, activity as tolerated, take medications as prescribed. Symptoms to report to physician include fever/chills , chest pain, shortness of breath, abdominal pain, erythema, drainage/discharge , or not improving as expected. Discharge Medications: Pantoprazole Sodium [Protonix] 40 mg PO DAILY levoFLOXacin [Levaquin] 500 mg PO DAILY 7 Days metroNIDAZOLE [Flagyl] 500 mg PO Q8H 7 Days Follow-up: PCP- Hoa Lnin on 09/27/19 - Discharge Data Discharge Date: 09/21/19 Discharge Disposition: Home, Self-Care 01 Condition: Fair - Referral to Home Health Primary Care Physician: PCP None - Patient Summary/Data Consults: Consultations 09/20/19 14:54 Consult to Physician [CONS] Routine - Patient Instructions Diet: Usual Diet as Tolerated Activity: As Tolerated Showering/Bathing: May Shower Notify Provider of: Fever, Increased Pain, Swelling and Redness, Drainage, Nausea and/or Vomiting Other/Special Instructions: Additional symptoms include chest pain, shortness of breath, or worsening abdominal pain. - Discharge Plan *PRESCRIPTION DRUG MONITORING PROGRAM REVIEWED*: No *COPY OF PRESCRIPTION DRUG MONITORING REPORT IN PATIENT ARAMIS: No Prescriptions/Med Rec: levoFLOXacin [Levaquin] 500 mg PO DAILY 7 Days #7 tab metroNIDAZOLE [Flagyl] 500 mg PO Q8H 7 Days #21 tab Home Medications: Home Meds Pantoprazole Sodium [Protonix] 40 mg PO DAILY #14 tablet. 09/15/19 [Rx] levoFLOXacin [Levaquin] 500 mg PO DAILY 7 Days #7 tab 09/21/19 [Rx] metroNIDAZOLE [Flagyl] 500 mg PO Q8H 7 Days #21 tab 09/21/19 [Rx] Patient Handouts: Urinary Tract Infection, Adult, [id number], Levofloxacin tablets, Diarrhea, Adult, [id number], Community-Acquired Pneumonia, Adult, [id number], Metronidazole tablets or capsules Referrals: [facility] [Outside] Hoa Linn NP [Nurse Practitioner] - 09/27/19 9:45 am - Discharge Summary/Plan Comment DC Time >30 min.: No - Patient Data Vitals - Most Recent: Last Vital Signs Temp 97.1 F 09/21/19 08:00 Pulse 72 09/21/19 08:00 Resp 16 09/21/19 08:00 BP 128/77 09/21/19 08:00 Pulse Ox 97 09/21/19 08:00 Weight - Most Recent: 98.458 kg I&O - Last 24 hours: Intake & Output 09/20/19 09/21/19 09/21/19 22:59 06:59 14:59 Intake Total 1893 1169 Output Total 300 Balance 1893 869 Lab Results - Last 24 hrs: Laboratory Results - last 24 hr 09/21/19 09/21/19 Range/Units 05:40 05:40 WBC 6.88 (4.0-11.0) K/uL RBC 4.61 (4.50-5.90) M/uL Hgb 13.1 (13.0-17.0) g/dL Hct 38.5 (38.0-50.0) % MCV 83.5 (80.0-98.0) fL MCH 28.4 (27.0-32.0) pg MCHC 34.0 (31.0-37.0) g/dL RDW Std Deviation 40.7 (28.0-62.0) fl RDW Coeff of Liliya 14 (11.0-15.0) % Plt Count 204 (150-400) K/uL MPV 8.90 (7.40-12.00) fL Neut % (Auto) 50.5 (48.0-80.0) % Lymph % (Auto) 35.8 (16.0-40.0) % [place] % (Auto) 12.6 (0.0-15.0) % Eos % (Auto) 1.0 (0.0-7.0) % Baso % (Auto) 0.1 (0.0-1.5) % Neut # (Auto) 3.5 (1.4-5.7) K/uL Lymph # (Auto) 2.5 H (0.6-2.4) K/uL [place] # (Auto) 0.9 H (0.0-0.8) K/uL Eos # (Auto) 0.1 (0.0-0.7) K/uL Baso # (Auto) 0.0 (0.0-0.1) K/uL Nucleated RBC % 0.0 /100WBC Nucleated RBCs # 0 K/uL Sodium 143 (136-148) mmol/L Potassium 3.4 L (3.5-5.1) mmol/L Chloride 108 H (98-107) mmol/L Carbon Dioxide 22.7 (21.0-32.0) mmol/L BUN 6 L (7.0-18.0) mg/dL Creatinine 0.8 (0.8-1.3) mg/dL Est Cr Clr Drug Dosing 150.89 mL/min Estimated GFR (MDRD) > 60.0 ml/min Glucose 94 (74-106) mg/dL Calcium 8.5 (8.5-10.1) mg/dL Total Bilirubin 0.8 (0.2-1.0) mg/dL AST 12 L (15-37) IU/L ALT 32 (14-63) IU/L Alkaline Phosphatase 53 (46-116) U/L Total Protein 6.7 (6.4-8.2) g/dL Albumin 3.4 (3.4-5.0) g/dL Globulin 3.3 (2.6-4.0) g/dL Albumin/Globulin Ratio 1.0 (0.9-1.6) GARY Results - Last 24 hrs: Microbiology 09/20/19 03:34 Cryptosporidium/Giardia - Final Stool / Feces 09/20/19 03:34 Shiga Toxin I & II - Final Stool / Feces 09/19/19 20:43 Urine Culture - Final Urine, Bladder MIXED FLIP 1,000-10,000 CFU/ML 09/19/19 21:18 Aerobic Blood Culture - Preliminary Blood - Venous - Lab Draw NO GROWTH AFTER 1 DAY Anaerobic Blood Culture - Preliminary NO GROWTH AFTER 1 DAY 09/19/19 20:54 Aerobic Blood Culture - Preliminary Blood - Venous NO GROWTH AFTER 1 DAY Anaerobic Blood Culture - Preliminary NO GROWTH AFTER 1 DAY 09/20/19 03:34 C. difficile Antigen & Toxins A,B - Final Stool / Feces Med Orders - Current: Current Medications Acetaminophen (Tylenol) 650 mg PO Q6H PRN PRN Reason: Pain/Fever Last Admin: 09/20/19 00:51 Dose: 650 mg Sodium Chloride (Normal Saline) 1,000 mls @ 125 mls/hr IV ASDIRECTED [facility] Last Admin: 09/21/19 09:16 Dose: 125 mls/hr Levofloxacin/Dextrose 500 mg/ (Premix) 100 mls @ 100 mls/hr IV Q24H [facility] Last Admin: 09/20/19 14:20 Dose: 100 mls/hr Metronidazole 500 mg/ Premix 100 mls @ 100 mls/hr IV QID [facility] Last Admin: 09/21/19 11:19 Dose: 100 mls/hr Pantoprazole Sodium 40 mg/ (Sodium Chloride) 10 mls @ 300 mls/hr IV DAILY [facility] Last Admin: 09/21/19 09:07 Dose: 300 mls/hr Morphine Sulfate (Morphine) 4 mg IVPUSH Q3H PRN PRN Reason: Pain Last Admin: 09/21/19 09:11 Dose: 4 mg Ondansetron HCl (Zofran) 4 mg IVPUSH Q4H PRN PRN Reason: Nausea Last Admin: 09/20/19 08:16 Dose: 4 mg Oxycodone HCl (Oxycodone) 5 mg PO Q4H PRN PRN Reason: Pain (severe 7-10) Last Admin: 09/21/19 11:27 Dose: 5 mg Discontinued Medications Azithromycin (Zithromax) 500 mg PO NOW STA Stop: 09/19/19 21:50 Last Admin: 09/19/19 21:58 Dose: 500 mg Hydromorphone HCl (Dilaudid) 1 mg IVPUSH ONETIME ONE Stop: 09/19/19 21:47 Last Admin: 09/19/19 21:53 Dose: 1 mg Sodium Chloride (Normal Saline) 1,000 mls @ 999 mls/hr IV STAT ONE Stop: 09/19/19 21:45 Last Admin: 09/19/19 21:13 Dose: 999 mls/hr Ceftriaxone Sodium/Dextrose 1 (gm/ Premix) 50 mls @ 100 mls/hr IV ONETIME ONE Stop: 09/19/19 21:53 Last Admin: 09/19/19 21:51 Dose: 100 mls/hr Pantoprazole Sodium 40 mg/ (Sodium Chloride) 10 mls @ 300 mls/hr IV NOW ONE Stop: 09/20/19 02:58 Last Admin: 09/20/19 03:16 Dose: 300 mls/hr Ibuprofen (Motrin) 400 mg PO Q6H PRN PRN Reason: Pain Ketorolac Tromethamine (Toradol) 30 mg IVPUSH ONETIME ONE Stop: 09/19/19 20:46 Last Admin: 09/19/19 21:13 Dose: 30 mg Lorazepam (Ativan) 1 mg IVPUSH ONETIME ONE Stop: 09/19/19 20:55 Last Admin: 09/19/19 21:13 Dose: 1 mg Morphine Sulfate (Morphine) 2 mg IVPUSH Q2H PRN PRN Reason: Pain Last Admin: 09/20/19 08:16 Dose: 2 mg Morphine Sulfate (Morphine) 4 mg IVPUSH Q2H PRN PRN Reason: Pain Last Admin: 09/20/19 12:49 Dose: 4 mg Ondansetron HCl (Zofran) 4 mg IVPUSH ONETIME ONE Stop: 09/19/19 20:46 Last Admin: 09/19/19 21:13 Dose: 4 mg Torey Sosa Last Filed: 09/21/19 18:06> Discharge Summary - Referral to Home Health Primary Care Physician: PCP None - Patient Summary/Data Consults: Consultations 09/20/19 14:54 Consult to Physician [CONS] Routine - Patient Data Vitals - Most Recent: Last Vital Signs Temp 36.5 C 09/21/19 12:00 Pulse 100 09/21/19 12:00 Resp 20 09/21/19 12:00 BP 147/95 H 09/21/19 12:00 Pulse Ox 96 09/21/19 12:00 I&O - Last 24 hours: Intake & Output 09/21/19 09/21/19 09/21/19 06:59 14:59 22:59 Intake Total 1169 1167 Output Total 300 Balance 869 1167 Lab Results - Last 24 hrs: Laboratory Results - last 24 hr 09/19/19 09/21/19 09/21/19 Range/Units 20:43 05:40 05:40 WBC 6.88 (4.0-11.0) K/uL RBC 4.61 (4.50-5.90) M/uL Hgb 13.1 (13.0-17.0) g/dL Hct 38.5 (38.0-50.0) % MCV 83.5 (80.0-98.0) fL MCH 28.4 (27.0-32.0) pg MCHC 34.0 (31.0-37.0) g/dL RDW Std Deviation 40.7 (28.0-62.0) fl RDW Coeff of Liliya 14 (11.0-15.0) % Plt Count 204 (150-400) K/uL MPV 8.90 (7.40-12.00) fL Neut % (Auto) 50.5 (48.0-80.0) % Lymph % (Auto) 35.8 (16.0-40.0) % [place] % (Auto) 12.6 (0.0-15.0) % Eos % (Auto) 1.0 (0.0-7.0) % Baso % (Auto) 0.1 (0.0-1.5) % Neut # (Auto) 3.5 (1.4-5.7) K/uL Lymph # (Auto) 2.5 H (0.6-2.4) K/uL [place] # (Auto) 0.9 H (0.0-0.8) K/uL Eos # (Auto) 0.1 (0.0-0.7) K/uL Baso # (Auto) 0.0 (0.0-0.1) K/uL Nucleated RBC % 0.0 /100WBC Nucleated RBCs # 0 K/uL Sodium 143 (136-148) mmol/L Potassium 3.4 L (3.5-5.1) mmol/L Chloride 108 H (98-107) mmol/L Carbon Dioxide 22.7 (21.0-32.0) mmol/L BUN 6 L (7.0-18.0) mg/dL Creatinine 0.8 (0.8-1.3) mg/dL Est Cr Clr Drug Dosing 150.89 mL/min Estimated GFR (MDRD) > 60.0 ml/min Glucose 94 (74-106) mg/dL Calcium 8.5 (8.5-10.1) mg/dL Total Bilirubin 0.8 (0.2-1.0) mg/dL AST 12 L (15-37) IU/L ALT 32 (14-63) IU/L Alkaline Phosphatase 53 (46-116) U/L Total Protein 6.7 (6.4-8.2) g/dL Albumin 3.4 (3.4-5.0) g/dL Globulin 3.3 (2.6-4.0) g/dL Albumin/Globulin Ratio 1.0 (0.9-1.6) Chlamydia/GC Source URINE C.trachomatis RNA (TMA) Negative (Negative) N.gonorrhoeae RNA (TMA) Negative (Negative) GARY Results - Last 24 hrs: Microbiology 09/20/19 03:34 Cryptosporidium/Giardia - Final Stool / Feces 09/20/19 03:34 Shiga Toxin I & II - Final Stool / Feces 09/19/19 20:43 Urine Culture - Final Urine, Bladder MIXED FLIP 1,000-10,000 CFU/ML 09/19/19 21:18 Aerobic Blood Culture - Preliminary Blood - Venous - Lab Draw NO GROWTH AFTER 1 DAY Anaerobic Blood Culture - Preliminary NO GROWTH AFTER 1 DAY 09/19/19 20:54 Aerobic Blood Culture - Preliminary Blood - Venous NO GROWTH AFTER 1 DAY Anaerobic Blood Culture - Preliminary NO GROWTH AFTER 1 DAY 09/20/19 03:34 C. difficile Antigen & Toxins A,B - Final Stool / Feces Med Orders - Current: Current Medications Discontinued Medications Acetaminophen (Tylenol) 650 mg PO Q6H PRN PRN Reason: Pain/Fever Last Admin: 09/20/19 00:51 Dose: 650 mg Azithromycin (Zithromax) 500 mg PO NOW STA Stop: 09/19/19 21:50 Last Admin: 09/19/19 21:58 Dose: 500 mg Hydromorphone HCl (Dilaudid) 1 mg IVPUSH ONETIME ONE Stop: 09/19/19 21:47 Last Admin: 09/19/19 21:53 Dose: 1 mg Sodium Chloride (Normal Saline) 1,000 mls @ 999 mls/hr IV STAT ONE Stop: 09/19/19 21:45 Last Admin: 09/19/19 21:13 Dose: 999 mls/hr Ceftriaxone Sodium/Dextrose 1 (gm/ Premix) 50 mls @ 100 mls/hr IV ONETIME ONE Stop: 09/19/19 21:53 Last Admin: 09/19/19 21:51 Dose: 100 mls/hr Sodium Chloride (Normal Saline) 1,000 mls @ 125 mls/hr IV ASDIRECTED [facility] Last Admin: 09/21/19 09:16 Dose: 125 mls/hr Pantoprazole Sodium 40 mg/ (Sodium Chloride) 10 mls @ 300 mls/hr IV NOW ONE Stop: 09/20/19 02:58 Last Admin: 09/20/19 03:16 Dose: 300 mls/hr Levofloxacin/Dextrose 500 mg/ (Premix) 100 mls @ 100 mls/hr IV Q24H [facility] Last Admin: 09/20/19 14:20 Dose: 100 mls/hr Metronidazole 500 mg/ Premix 100 mls @ 100 mls/hr IV QID [facility] Last Admin: 09/21/19 11:19 Dose: 100 mls/hr Pantoprazole Sodium 40 mg/ (Sodium Chloride) 10 mls @ 300 mls/hr IV DAILY [facility] Last Admin: 09/21/19 09:07 Dose: 300 mls/hr Ibuprofen (Motrin) 400 mg PO Q6H PRN PRN Reason: Pain Ketorolac Tromethamine (Toradol) 30 mg IVPUSH ONETIME ONE Stop: 09/19/19 20:46 Last Admin: 09/19/19 21:13 Dose: 30 mg Lorazepam (Ativan) 1 mg IVPUSH ONETIME ONE Stop: 09/19/19 20:55 Last Admin: 09/19/19 21:13 Dose: 1 mg Morphine Sulfate (Morphine) 2 mg IVPUSH Q2H PRN PRN Reason: Pain Last Admin: 09/20/19 08:16 Dose: 2 mg Morphine Sulfate (Morphine) 4 mg IVPUSH Q2H PRN PRN Reason: Pain Last Admin: 09/20/19 12:49 Dose: 4 mg Morphine Sulfate (Morphine) 4 mg IVPUSH Q3H PRN PRN Reason: Pain Last Admin: 09/21/19 09:11 Dose: 4 mg Ondansetron HCl (Zofran) 4 mg IVPUSH ONETIME ONE Stop: 09/19/19 20:46 Last Admin: 09/19/19 21:13 Dose: 4 mg Ondansetron HCl (Zofran) 4 mg IVPUSH Q4H PRN PRN Reason: Nausea Last Admin: 09/20/19 08:16 Dose: 4 mg Oxycodone HCl (Oxycodone) 5 mg PO Q4H PRN PRN Reason: Pain (severe 7-10) Last Admin: 09/21/19 11:27 Dose: 5 mg - Free Text/Narrative Note: I have seen and evaluated the patient with the resident. I have discussed findings and treatment plan with the resident. I agree with the assessment and plan in the following note.
== END 2019-09-21 11:57 | disposition home or self-care (01) ==
LOC: MW.ED 20:36 → MW.MS 21:50
PROVIDERS: ADMIT Internal Medicine; ATTEND Internal Medicine
DX: R19.7 Diarrhea, unspecified (principal); J18.9 Pneumonia, unspecified organism; N30.00 Acute cystitis without hematuria
CPT/HCPCS: 36415; 71046; 76705; 80053; 81001; 83690; 85025; 87040; 87045; 87046; 87086; 87324; 87328; 87329; 87491; 87591; 87899; 96361; 96365; 96375; 99285; A9270; C9113; J0696; J1170; J1885; J1956; J2060; J2270; J2405; J3490; J7030; J7050; 96366; 96367; 96376; G0378

== ENCOUNTER 2019-11-05 09:00 | Emergency (ER) | payer SELFPAY ==
[2019-11-05] MEDS ORDERED: Ketorolac 60 MG/2 ML SDV IM ONE (09:50)
--- NOTE | 2019-11-05 09:54 | EDM.PDOC ---
ED HPI GENERAL MEDICAL PROBLEM - General Chief Complaint: Upper Extremity Injury/Pain Stated Complaint: PT INJURED R SHOULDER APROX 3 DAYS AGO Time Seen by Provider: 11/05/19 09:05 Source of Information: Reports: Patient History Limitations: Reports: No Limitations - History of Present Illness INITIAL COMMENTS - FREE TEXT/NARRATIVE: HISTORY AND PHYSICAL: History of present illness: Patient is a 29-year-old male who presents to the ED today with concern of right shoulder injury that occurred 3 days ago. Patient states he was helping a friend move and was lifting a couch when he tripped on the step and fell into his right shoulder. Patient states initially he was able to use the shoulder without pain or difficulty but over the course of the past couple days the pain has been worsening. Patient states he has not taken anything for his symptoms. Patient denies any head injury or loss of consciousness. Patient denies any other symptoms or concerns. Patient denies fever, chills, chest pain, shortness of breath, or cough. Denies headache, neck stiff ness, change in vision, syncope, or near syncope. Denies nausea, vomiting, abdominal pain, diarrhea, constipation, or dysuria. Has not noted any blood in urine or stool. Patient has been eating and drinking appropriately. Review of systems: As per history of present illness and below otherwise all systems reviewed and negative. Past medical history: As per history of present illness and as reviewed below otherwise noncontributory. Surgical history: As per history of present illness and as reviewed below otherwise noncontributory. Social history: See social history for further information Family history: As per history of present illness and as reviewed below otherwise noncontributory. Physical exam: General: Patient is alert, oriented, and in no acute distress. Patient sitting comfortably on exam table. HEENT: Atraumatic, normocephalic, pupils equal and reactive bilaterally, negative for conjunctival pallor or scleral icterus, mucous membranes moist, TMs normal bilaterally, throat clear, neck supple, nontender, trachea midline. No drooling or trismus noted. No meningeal signs. No hot potato voice noted. Lungs: Clear to auscultation, breath sounds equal bilaterally, chest nontender. Heart: S1S2, regular rate and rhythm without overt murmur Abdomen: Soft, nondistended, nontender. Negative for masses or hepatosplenomegaly. Negative for costovertebral tenderness. Pelvis: Stable nontender. Genitourinary: Deferred. Rectal: Deferred. Skin: Intact, warm, dry. No lesions or rashes noted. Extremities: No obvious deformity of the complete right upper extremity. Patient does have limited range of motion of the right shoulder due to pain but does have full range of motion of the right elbow wrist and digits. Radial pulses grossly intact of the right upper extremity with capillary refill less than 2 seconds. Otherwise, atraumatic, negative for cords or calf pain. Neurovascular unremarkable. Neuro: Awake, alert, oriented. Cranial nerves II through XII unremarkable. Cerebellum unremarkable. Motor and sensory unremarkable throughout. Exam nonfocal. Notes: Discussed importance for follow-up with an orthopedic provider and primary care provider. Voices understanding and is agreeable to plan of care. Denies any further questions or concerns at this time. Diagnostics: Shoulder XR Therapeutics: Shoulder sling, placed by nursing staff Prescription: Diclofenac Impression: Right shoulder injury Plan: 1. Rest, ice, elevate the affected extremity. You can apply ice 15 minutes on, 15 minutes off. 2. Tylenol as directed for pain management or discomfort. Take medication as prescribed. 3. Follow up with the Orthopedic provider primary care provider as discussed. Return to the ED as needed and as discussed. Definitive disposition and diagnosis as appropriate pending reevaluation and review of above. right shoulder Pain Score (Numeric/FACES): 9 - Related Data Allergies Allergy/AdvReac Type Severity Reaction Status Date / Time No Known Allergies Allergy Verified 11/05/19 09:10 Home Meds: Home Meds Pantoprazole Sodium [Protonix] 40 mg PO DAILY #14 tablet. 09/15/19 [Rx] Past Medical History - Past Health History Medical/Surgical History: Denies Medical/Surgical History Cardiovascular History: Reports: None Respiratory History: Reports: None Gastrointestinal History: Reports: GERD Musculoskeletal History: Reports: None Endocrine/Metabolic History: Reports: None - Infectious Disease History Infectious Disease History: Reports: Chicken Pox Social & Family History - Family History Family Medical History: Noncontributory - Tobacco Use Smoking Status *Q: Former Smoker Used Tobacco, but Quit: Yes Month/Year Tobacco Last Used: 2011 - Caffeine Use Caffeine Use: Reports: Coffee, Energy Drinks, Soda, Tea - Recreational Drug Use Recreational Drug Use: Yes Recreational Drug Type: Reports: Marijuana/Hashish Recreational Drug Use Frequency: Monthly Review of Systems - Review of Systems Review Of Systems: Comprehensive ROS is negative, except as noted in HPI. ED EXAM, GENERAL - Physical Exam Exam: See Below (see dictation) Course - Vital Signs Last Recorded V/S: Last Vital Signs Temp 97.7 F 11/05/19 09:10 Pulse 97 11/05/19 09:10 Resp 18 11/05/19 09:10 BP 132/94 H 11/05/19 09:10 Pulse Ox 97 11/05/19 09:10 - Orders/Labs/Meds Orders: Active Orders 24 hr Category Date Time Status DME for Discharge [COMM] Stat Oth 11/05/19 09:50 Ordered Meds: Medications Discontinued Medications Generic Name Dose Route Start Last Admin Trade Name Traci PRN Reason Stop Dose Admin Ketorolac Tromethamine 60 mg 11/05/19 09:50 11/05/19 10:09 Toradol IM 11/05/19 09:51 60 mg ONETIME ONE Administration Departure - Departure Time of Disposition: 10:18 Disposition: Home, Self-Care 01 Clinical Impression: Right shoulder injury Qualifiers: Encounter type: initial encounter Qualified Code(s): S49.91XA - Unspecified injury of right shoulder and upper arm, initial encounter - Discharge Information Referrals: PCP,None [Primary Care Provider] - Forms: ED Department Discharge Additional Instructions: The following information is given to patients seen in the emergency department who are being discharged to home. This information is to outline your options for follow-up care. We provide all patients seen in our emergency department with a follow-up referral. The need for follow-up, as well as the timing and circumstances, are variable depending upon the specifics of your emergency department visit. If you don't have a primary care physician on staff, we will provide you with a referral. We always advise you to contact your personal physician following an emergency department visit to inform them of the circumstance of the visit and for follow-up with them and/or the need for any referrals to a consulting specialist. The emergency department will also refer you to a specialist when appropriate. This referral assures that you have the opportunity for follow-up care with a specialist. All of these measure are taken in an effort to provide you with optimal care, which includes your follow-up. Under all circumstances we always encourage you to contact your private physician who remains a resource for coordinating your care. When calling for follow-up care, please make the office aware that this follow-up is from your recent emergency room visit. If for any reason you are refused follow-up, please contact the [facility] Emergency Department at and asked to speak to the emergency department charge nurse. [facility] [address] [place] [address] [facility] [address] [place] [id number] [facility] - [facility] [address] [place] [address], [address] [place] [address] 1. Rest, ice, elevate the affected extremity. You can apply ice 15 minutes on, 15 minutes off. 2. Tylenol as directed for pain management or discomfort. Take medication as prescribed. 3. Follow up with the Orthopedic provider primary care provider as discussed. Return to the ED as needed and as discussed. Sepsis Event Note - Evaluation Sepsis Screening Result: No Definite Risk - Focused Exam Vital Signs: Vital Signs Temp Pulse Resp BP Pulse Ox 11/05/19 09:10 97.7 F 97 18 132/94 H 97 Date Exam was Performed: 11/05/19 Time Exam was Performed: 10:18 - My Orders Last 24 Hours: My Active Orders 11/05/19 09:50 DME for Discharge [COMM] Stat - Assessment/Plan Last 24 Hours: My Active Orders 11/05/19 09:50 DME for Discharge [COMM] Stat
--- NOTE | 2019-11-05 10:12 | CR ---
HISTORY: Right shoulder pain. TECHNIQUE: Three views of the right shoulder. COMPARISON: No prior. FINDINGS: There is no acute fracture or dislocation. Glenohumeral and AC joints maintained. No abnormality within the included portion of the right lung. IMPRESSION: No acute fracture or malalignment. Dictated by Barry Stokes MD @ 11/05/2019 10:11:10 AM Dictated by: Barry Stokes MD @ 11/05/2019 10:11:16 (Electronically Signed)
== END 2019-11-05 10:34 | disposition home or self-care (01) ==
LOC: MW.ED 09:00
DX: S49.91XA Unspecified injury of right shoulder and upper arm, initial encounter (principal); K21.9 Gastro-esophageal reflux disease without esophagitis; Z87.891 Personal history of nicotine dependence; Z79.899 Other long term (current) drug therapy; W10.9XXA Fall (on) (from) unspecified stairs and steps, initial encounter
CPT/HCPCS: 73030; 96372; 99283; J1885; 99284

== ENCOUNTER 2019-11-05 19:37 | Emergency (ER) | payer SELFPAY ==
[2019-11-05] MEDS ORDERED: Lidocaine 1% 10 ML MDV INJECT ONE (20:28)
[2019-11-05] MEDS ORDERED: Bupivacaine 0.25% 10 ML SDV INJECT ONE (20:42)
[2019-11-05] MEDS ORDERED: Bupivacaine 0.5% 10 ML SDV ONE (20:43)
[2019-11-05] MEDS ORDERED: Diazepam 5 MG Tab PO ONE (20:50)
--- NOTE | 2019-11-05 20:56 | EDM.PDOC ---
ED HPI GENERAL MEDICAL PROBLEM - General Chief Complaint: Upper Extremity Injury/Pain Stated Complaint: RT SHOULDER PAIN Time Seen by Provider: 11/05/19 20:51 Source of Information: Reports: Patient History Limitations: Reports: No Limitations - History of Present Illness INITIAL COMMENTS - FREE TEXT/NARRATIVE: 29-year-old male presents the emergency room chief complaint of pain in his right shoulder. Has a history of trauma to his shoulder with a negative x-ray. Patient states he still has severe pain in his shoulder and cannot move it. Patient here for pain control Onset: Today Duration: Hour(s):, Day(s): (2), Getting Worse Location: Reports: Upper Extremity, Right Quality: Reports: Ache Severity: Moderate Improves with: Reports: None Associated Symptoms: Reports: No Other Symptoms right shoulder Pain Score (Numeric/FACES): 9 - Related Data Allergies Allergy/AdvReac Type Severity Reaction Status Date / Time No Known Allergies Allergy Verified 11/05/19 19:44 Home Meds: Home Meds Pantoprazole Sodium [Protonix] 40 mg PO DAILY #14 tablet.dr 09/15/19 [Rx] Diclofenac Sodium [Voltaren] 75 mg PO BIDMEALS PRN #15 tab.cr 11/05/19 [Rx] Past Medical History - Past Health History Medical/Surgical History: Denies Medical/Surgical History Cardiovascular History: Reports: None Respiratory History: Reports: None Gastrointestinal History: Reports: GERD Musculoskeletal History: Reports: None Endocrine/Metabolic History: Reports: None - Infectious Disease History Infectious Disease History: Reports: Chicken Pox Social & Family History - Family History Family Medical History: Noncontributory - Tobacco Use Smoking Status *Q: Never Smoker - Caffeine Use Caffeine Use: Reports: Coffee, Energy Drinks, Soda, Tea - Recreational Drug Use Recreational Drug Use: Yes Recreational Drug Type: Reports: Marijuana/Hashish Recreational Drug Use Frequency: Monthly Review of Systems - Review of Systems Review Of Systems: See Below Constitutional: Reports: No Symptoms Ears: Reports: No Symptoms Nose: Reports: No Symptoms Mouth/Throat: Reports: No Symptoms Respiratory: Reports: No Symptoms Cardiovascular: Reports: No Symptoms GI/Abdominal: Reports: No Symptoms Genitourinary: Reports: No Symptoms Musculoskeletal: Reports: Shoulder Pain Skin: Reports: No Symptoms Neurological: Reports: No Symptoms Psychiatric: Reports: No Symptoms ED EXAM, GENERAL - Physical Exam Exam: See Below Free Text/Narrative:: Patient unable to move his right shoulder secondary to pain. Patient has no signs of trauma at this time. Exam Limited By: No Limitations General Appearance: Alert, WD/WN, Moderate Distress Eye Exam: Bilateral Eye: Normal Fundi, Normal Inspection Ears: Normal External Exam, Normal Canal, Normal TMs Ear Exam: Bilateral Ear: Auricle Normal, Canal Normal Nose: Normal Inspection Throat/Mouth: Normal Inspection Head: Atraumatic, Normocephalic Neck: Normal Inspection, Supple Respiratory/Chest: No Respiratory Distress, Lungs Clear, No Accessory Muscle Use Cardiovascular: Normal Peripheral Pulses, Regular Rate, Rhythm (Male) Exam: Deferred Extremities: Normal Inspection, Arm Pain, Other (Patient has limited use of his right shoulder secondary to pain.) Neurological: Alert, Oriented, CN II-XII Intact Psychiatric: Normal Affect Course - Vital Signs Text/Narrative:: This is a 29-year-old male who injured his right shoulder. Patient unable to move secondary to trauma to the shoulder. Patient was here earlier and had negative x-rays. Patient has decreased range of motion secondary to pain. States he cannot sleep at night. Patient's shoulder was injected with 10 cc of Marcaine in the shoulder joint. Patient tolerated procedure well and was was able to move shoulder with minimal pain. Patient will get be given 10 mg of Valium. Patient then will be discharged home with an arm sling and follow-up with orthopedics Last Recorded V/S: Last Vital Signs Temp 96.4 F L 11/05/19 19:45 Pulse 104 H 11/05/19 19:45 Resp 20 11/05/19 19:45 BP 138/88 11/05/19 19:45 Pulse Ox 97 11/05/19 19:45 - Orders/Labs/Meds Orders: Active Orders 24 hr Category Date Time Status diazePAM [Valium] Med 11/05/19 20:50 Once 10 mg PO ONETIME ONE Meds: Medications Discontinued Medications Generic Name Dose Route Start Last Admin Trade Name Traci PRN Reason Stop Dose Admin Bupivacaine HCl 10 ml 11/05/19 20:42 Sensorcaine-Mpf 0.25% INJECT 11/05/19 20:43 ONETIME ONE Bupivacaine HCl Confirm 11/05/19 20:43 Sensorcaine-Mpf 0.5% Administered 11/05/19 20:44 Dose 10 ml .ROUTE .STK-MED ONE Lidocaine HCl 10 ml 11/05/19 20:28 Xylocaine 1% INJECT 11/05/19 20:29 ONETIME ONE Lidocaine HCl Confirm 11/05/19 20:32 Xylocaine-Mpf 1% Administered 11/05/19 20:33 Dose 10 ml .ROUTE .STK-MED ONE Departure - Departure Time of Disposition: 20:58 Disposition: Home, Self-Care 01 Condition: Good Clinical Impression: Contusion of shoulder, right - Discharge Information Instructions: Shoulder Pain, [id number], How to Use Cold Therapy Referrals: PCP,Unobtain [Primary Care Provider] - Additional Instructions: Patient to follow-up with orthopedics. Patient to use ice liberally q. 20 minutes times hour. Sepsis Event Note - Evaluation Sepsis Screening Result: No Definite Risk - Focused Exam Vital Signs: Vital Signs Temp Pulse Resp BP Pulse Ox 11/05/19 19:45 96.4 F L 104 H 20 138/88 97 Date Exam was Performed: 11/05/19 Time Exam was Performed: 20:51 - My Orders Last 24 Hours: My Active Orders 11/05/19 20:50 diazePAM [Valium] 10 mg PO ONETIME ONE - Assessment/Plan Last 24 Hours: My Active Orders 11/05/19 20:50 diazePAM [Valium] 10 mg PO ONETIME ONE
[2019-11-05] MEDS ORDERED: Bupivacaine 0.5% 10 ML SDV INJECT ONE (21:00)
== END 2019-11-05 21:41 | disposition home or self-care (01) ==
LOC: MW.ED 19:37
DX: S40.011A Contusion of right shoulder, initial encounter (principal); X58.XXXA Exposure to other specified factors, initial encounter
CPT/HCPCS: 20610; 99283; A9270; J2001; J3490

== ENCOUNTER 2019-11-06 07:39 | Emergency (ER) | payer SELFPAY ==
--- NOTE | 2019-11-06 07:54 | EDM.PDOC ---
ED HPI GENERAL MEDICAL PROBLEM - General Chief Complaint: Upper Extremity Injury/Pain Stated Complaint: RT SHOULDER PAIN/TINGLING IN FINGERS Time Seen by Provider: 11/06/19 07:50 - History of Present Illness INITIAL COMMENTS - FREE TEXT/NARRATIVE: 29 y/o male with 4 days of progressive right sided shoulder pain that began when he was helping a friend move. The pain has progressively gotten worst and medications he has tried at home have not worked. denies weakness, numbness. right shoulder Pain Score (Numeric/FACES): 10 - Related Data Allergies Allergy/AdvReac Type Severity Reaction Status Date / Time No Known Allergies Allergy Verified 11/06/19 07:49 Home Meds: Home Meds Pantoprazole Sodium [Protonix] 40 mg PO DAILY #14 tablet.dr 09/15/19 [Rx] Diclofenac Sodium [Voltaren] 75 mg PO BIDMEALS PRN #15 tab.cr 11/05/19 [Rx] Past Medical History - Past Health History Medical/Surgical History: Denies Medical/Surgical History Cardiovascular History: Reports: None Respiratory History: Reports: None Gastrointestinal History: Reports: GERD Musculoskeletal History: Reports: None Endocrine/Metabolic History: Reports: None - Infectious Disease History Infectious Disease History: Reports: Chicken Pox Social & Family History - Family History Family Medical History: Noncontributory - Caffeine Use Caffeine Use: Reports: Coffee, Energy Drinks, Soda, Tea Review of Systems - Review of Systems Review Of Systems: See Below ED EXAM, GENERAL - Physical Exam Exam: See Below General Appearance: Alert, No Apparent Distress Ears: Normal External Exam Nose: Normal Inspection Throat/Mouth: Normal Inspection Neck: Normal Inspection, Supple, Non-Tender. No: Tender Lateral, Tender Midline Respiratory/Chest: No Respiratory Distress Cardiovascular: Normal Peripheral Pulses Peripheral Pulses: 4+: Radial (L), Radial (R) GI/Abdominal: Soft Back Exam: Normal Inspection, Full Range of Motion Extremities: Other (RUE: ttp in the shoulder, limited range of motion, sensation intact throughout, radial pulse intact, warm well perfused. ) Skin Exam: Other (track umanzor noted in the LUE over veins ) Course - Vital Signs Last Recorded V/S: Last Vital Signs Temp 97.4 F 11/06/19 07:50 Pulse 102 H 11/06/19 07:50 Resp 18 11/06/19 07:50 BP 107/78 11/06/19 07:50 Pulse Ox 98 11/06/19 07:50 - Orders/Labs/Meds Meds: Medications Discontinued Medications Generic Name Dose Route Start Last Admin Trade Name Traci PRMurphy Reason Stop Dose Admin Acetaminophen 1,000 mg 11/06/19 08:02 11/06/19 08:10 Tylenol Extra Strength PO 11/06/19 08:03 1,000 mg ONETIME ONE Administration Cyclobenzaprine HCl 10 mg 11/06/19 08:01 11/06/19 08:11 Flexeril PO 11/06/19 08:02 10 mg ONETIME ONE Administration Ketorolac Tromethamine 30 mg 11/06/19 08:01 11/06/19 08:10 Toradol IM 11/06/19 08:02 30 mg ONETIME ONE Administration - Re-Assessments/Exams Free Text/Narrative Re-Assessment/Exam: 11/06/19 21:20 atraumatic pain, negative films on prior visit. Discharged home, rec taking NSAIDS for pain. Departure - Departure Time of Disposition: 08:47 Disposition: Home, Self-Care 01 Clinical Impression: Shoulder pain - Discharge Information Instructions: Shoulder Pain, [id number] Referrals: PCP,None [Primary Care Provider] - Forms: ED Department Discharge Additional Instructions: The following information is given to patients seen in the emergency department who are being discharged to home. This information is to outline your options for follow-up care. We provide all patients seen in our emergency department with a follow-up referral. The need for follow-up, as well as the timing and circumstances, are variable depending upon the specifics of your emergency department visit. If you don't have a primary care physician on staff, we will provide you with a referral. We always advise you to contact your personal physician following an emergency department visit to inform them of the circumstance of the visit and for follow-up with them and/or the need for any referrals to a consulting specialist. The emergency department will also refer you to a specialist when appropriate. This referral assures that you have the opportunity for follow-up care with a specialist. All of these measure are taken in an effort to provide you with optimal care, which includes your follow-up. Under all circumstances we always encourage you to contact your private physician who remains a resource for coordinating your care. When calling for follow-up care, please make the office aware that this follow-up is from your recent emergency room visit. If for any reason you are refused follow-up, please contact the [facility] Emergency Department at and asked to speak to the emergency department charge nurse. follow up with orthopaedics Sepsis Event Note - Focused Exam Date Exam was Performed: 11/06/19 Time Exam was Performed: 21:21
[2019-11-06] MEDS ORDERED: Cyclobenzaprine 10 MG Tab PO ONE (08:01)
[2019-11-06] MEDS ORDERED: Ketorolac 30 MG/ML SDV IM ONE (08:01)
[2019-11-06] MEDS ORDERED: Acetaminophen 500 MG Tab PO ONE (08:02)
== END 2019-11-06 09:02 | disposition home or self-care (01) ==
LOC: MW.ED 07:39
DX: M25.511 Pain in right shoulder (principal); Z79.899 Other long term (current) drug therapy; K21.9 Gastro-esophageal reflux disease without esophagitis
CPT/HCPCS: 96372; 99283; A9270; J1885

== ENCOUNTER 2019-11-07 11:53 | Emergency (ER) | payer SELFPAY ==
[2019-11-07] MEDS ORDERED: Ketorolac 60 MG/2 ML SDV IM ONE (12:00)
[2019-11-07] MEDS ORDERED: Albuterol/Ipratropium 4 GM Inhalation Spray INH PRN (12:00)
== END 2019-11-07 15:00 | disposition left against medical advice (07) ==
LOC: EDBD 11:53 → MERGE 11:53 → MW.ED 11:53
DX: Z53.21 Procedure and treatment not carried out due to patient leaving prior to being seen by health care provider (principal)
CPT/HCPCS: 93005

== ENCOUNTER 2019-11-07 12:07 | Inpatient (IN) | payer SELFPAY ==
[2019-11-07] MEDS ORDERED: Ketorolac 60 MG/2 ML SDV IM ONE (12:09)
[2019-11-07] MEDS ORDERED: Albuterol/Ipratropium 3.0-0.5 MG/3 ML Neb Soln NEB ONE (12:09)
--- NOTE | 2019-11-07 12:29 | EDM.PDOC ---
ED HPI GENERAL MEDICAL PROBLEM - General Chief Complaint: General Stated Complaint: SOB Time Seen by Provider: 11/07/19 12:27 Source of Information: Reports: Patient, Old Records History Limitations: Reports: No Limitations - History of Present Illness INITIAL COMMENTS - FREE TEXT/NARRATIVE: Patient is a 29-year-old male who is been seen in our department several times over the last week for right shoulder injury and is presenting now with a productive cough producing a yellow bloody sputum which started last night. Patient states he has had pneumonia several times before and also has had bronchitis in the past. He denies any fever chills but is having pleuritic chest pain with this. Feels he does have tightness across his chest. He has not been nauseous or vomiting. He denies any swelling to his ankles or calfs. He denies any bloody or tarry stools. Patient denies being a cigarette smoker. He is complaining of having severe right shoulder pain that is worse with coughing. Patient is very familiar with ER staff does have a history of IV drug abuse. Duration: Day(s): (Less than 1 day) Location: Reports: Chest Quality: Reports: Pressure Improves with: Reports: None Worsens with: Reports: Breathing Associated Symptoms: Reports: Chest Pain, cough w sputum, Shortness of Breath. Denies: Diaphoresis, Fever/Chills, Nausea/Vomiting back Pain Score (Numeric/FACES): 10 - Related Data Allergies Allergy/AdvReac Type Severity Reaction Status Date / Time No Known Allergies Allergy Verified 11/07/19 12:10 Home Meds: Home Meds Pantoprazole Sodium [Protonix] 40 mg PO DAILY #14 tablet. 09/15/19 [Rx] Diclofenac Sodium [Voltaren] 75 mg PO BIDMEALS PRN #15 tab.cr 11/05/19 [Rx] Past Medical History - Past Health History Medical/Surgical History: Denies Medical/Surgical History Cardiovascular History: Reports: None Respiratory History: Reports: None Gastrointestinal History: Reports: GERD Musculoskeletal History: Reports: None Endocrine/Metabolic History: Reports: None - Infectious Disease History Infectious Disease History: Reports: None Social & Family History - Family History Family Medical History: Noncontributory - Tobacco Use Smoking Status *Q: Never Smoker - Caffeine Use Caffeine Use: Reports: Coffee, Energy Drinks, Soda, Tea - Recreational Drug Use Recreational Drug Use: No ED ROS GENERAL - Review of Systems Review Of Systems: Comprehensive ROS is negative, except as noted in HPI. ED EXAM, GENERAL - Physical Exam Exam: See Below Exam Limited By: No Limitations General Appearance: Mild Distress Head: Atraumatic, Normocephalic Neck: Normal Inspection, Supple Respiratory/Chest: Lungs Clear, Normal Breath Sounds, Chest Non-Tender, Respiratory Distress (Mild respiratory distress with increased respiratory rate. ). No: Decreased Breath Sounds, Rhonchi, Wheezing Cardiovascular: Regular Rate, Rhythm, No Edema, No JVD, No Murmur GI/Abdominal: Normal Bowel Sounds, Soft, Non-Tender Back Exam: Normal Inspection. No: CVA Tenderness (L), CVA Tenderness (R) Neurological: Alert, Normal Cognition Psychiatric: Anxious Skin Exam: Warm, Dry, Normal Color Lymphatic: No Adenopathy EKG INTERPRETATION Rhythm: NSR ST-T: Normal QT: Normal (ST or T wave changes.) Course - Vital Signs Text/Narrative:: Since patient's O2 sats are in the high 90s and his lung exam appears normal to my findings I will treat him with DuoNeb inhaler and a shot of Toradol for shoulder pain. Patient is still complaining of severe chest and back pain and looks very anxious. This is after I gave him lorazepam. Chest x-ray showing that he has bilateral pneumonia with a nodular pattern. Patient's white blood cell count is 11.8 but his lactate was 4.4. His electrolytes are normal. I did give patient's fentanyl for his pain and what I believed to partially be early withdrawal symptoms. He had been given Rocephin 1 g and Zithromax 500 mg IV for community-acquired pneumonia. I do not believe this is coronavirus. His influenza a and B were both negative. Patient is being admitted to the hospital at this time though his oxygen saturation is still in the 95% range. He is still complaining of pain in his back and chest and shoulder. Vital signs otherwise appear to be stable. Last Recorded V/S: Last Vital Signs Temp 37.3 C 11/07/19 20:00 Pulse 130 H 11/07/19 20:00 Resp 22 H 11/07/19 20:00 BP 116/48 L 11/07/19 20:00 Pulse Ox 91 L 11/07/19 20:00 - Orders/Labs/Meds Labs: Laboratory Tests 11/07/19 11/07/19 11/07/19 Range/Units 13:54 13:54 13:54 WBC 11.84 H (4.0-11.0) K/uL RBC 4.32 L (4.50-5.90) M/uL Hgb 12.3 L (13.0-17.0) g/dL Hct 36.9 L (38.0-50.0) % MCV 85.4 (80.0-98.0) fL MCH 28.5 (27.0-32.0) pg MCHC 33.3 (31.0-37.0) g/dL RDW Std Deviation 44.2 (28.0-62.0) fl RDW Coeff of Liliya 14 (11.0-15.0) % Plt Count 213 (150-400) K/uL MPV 10.80 (7.40-12.00) fL Add Manual Diff YES Neutrophils % (Manual) 59 (48.0-80.0) % Band Neutrophils % 22 % Lymphocytes % (Manual) 11 L (16.0-40.0) % Monocytes % (Manual) 7 (0.0-15.0) % Metamyelocytes % 1 % Nucleated RBC % 0.0 /100WBC Absolute Seg Neuts 7.0 H (1.4-5.7) Band Neutrophils # 2.6 Lymphocytes # (Manual) 1.3 (0.6-2.4) Monocytes # (Manual) 0.8 (0.0-0.8) Absolute Metamyelocyte 0.1 Nucleated RBCs # 0 K/uL Lactate (0.20-2.00) mmol/L Sodium 134 L (136-148) mmol/L Potassium 3.7 (3.5-5.1) mmol/L Chloride 99 (98-107) mmol/L Carbon Dioxide 21.9 (21.0-32.0) mmol/L BUN 27 H (7.0-18.0) mg/dL Creatinine 1.8 H (0.8-1.3) mg/dL Est Cr Clr Drug Dosing 63.09 mL/min Estimated GFR (MDRD) 45.2 ml/min Glucose 162 H (74-106) mg/dL Hemoglobin A1c (4.5-6.2) % Calcium 8.6 (8.5-10.1) mg/dL Phosphorus 2.7 (2.6-4.7) mg/dL Magnesium 0.7 L (1.8-2.4) mg/dL Total Bilirubin 1.2 H (0.2-1.0) mg/dL AST 36 (15-37) IU/L ALT 38 (14-63) IU/L Alkaline Phosphatase 70 (46-116) U/L Creatine Kinase (26-308) U/L Troponin I 0.057 H (0.000-0.056) ng/mL Total Protein 6.9 (6.4-8.2) g/dL Albumin 2.6 L (3.4-5.0) g/dL Globulin 4.3 H (2.6-4.0) g/dL Albumin/Globulin Ratio 0.6 L (0.9-1.6) Triglycerides (0-200) mg/dL Cholesterol (50-200) mg/dL LDL Cholesterol, Calc (60-180) mg/dL VLDL Cholesterol (5-55) mg/dL HDL Cholesterol (40-60) mg/dL Cholesterol/HDL Ratio (3.3-6.0) TSH 3rd Generation (0.36-3.74) uIU/mL 11/07/19 11/07/19 11/07/19 Range/Units 13:54 13:54 13:54 WBC (4.0-11.0) K/uL RBC (4.50-5.90) M/uL Hgb (13.0-17.0) g/dL Hct (38.0-50.0) % MCV (80.0-98.0) fL MCH (27.0-32.0) pg MCHC (31.0-37.0) g/dL RDW Std Deviation (28.0-62.0) fl RDW Coeff of Liliya (11.0-15.0) % Plt Count (150-400) K/uL MPV (7.40-12.00) fL Add Manual Diff Neutrophils % (Manual) (48.0-80.0) % Band Neutrophils % % Lymphocytes % (Manual) (16.0-40.0) % Monocytes % (Manual) (0.0-15.0) % Metamyelocytes % % Nucleated RBC % /100WBC Absolute Seg Neuts (1.4-5.7) Band Neutrophils # Lymphocytes # (Manual) (0.6-2.4) Monocytes # (Manual) (0.0-0.8) Absolute Metamyelocyte Nucleated RBCs # K/uL Lactate (0.20-2.00) mmol/L Sodium (136-148) mmol/L Potassium (3.5-5.1) mmol/L Chloride (98-107) mmol/L Carbon Dioxide (21.0-32.0) mmol/L BUN (7.0-18.0) mg/dL Creatinine (0.8-1.3) mg/dL Est Cr Clr Drug Dosing mL/min Estimated GFR (MDRD) ml/min Glucose (74-106) mg/dL Hemoglobin A1c 5.2 (4.5-6.2) % Calcium (8.5-10.1) mg/dL Phosphorus (2.6-4.7) mg/dL Magnesium (1.8-2.4) mg/dL Total Bilirubin (0.2-1.0) mg/dL AST (15-37) IU/L ALT (14-63) IU/L Alkaline Phosphatase (46-116) U/L Creatine Kinase 282 (26-308) U/L Troponin I (0.000-0.056) ng/mL Total Protein (6.4-8.2) g/dL Albumin (3.4-5.0) g/dL Globulin (2.6-4.0) g/dL Albumin/Globulin Ratio (0.9-1.6) Triglycerides 150 (0-200) mg/dL Cholesterol <50 L (50-200) mg/dL LDL Cholesterol, Calc -41 L (60-180) mg/dL VLDL Cholesterol 30 (5-55) mg/dL HDL Cholesterol 11 L (40-60) mg/dL Cholesterol/HDL Ratio 0.0 L (3.3-6.0) TSH 3rd Generation 1.54 (0.36-3.74) uIU/mL 11/07/19 Range/Units 14:02 WBC (4.0-11.0) K/uL RBC (4.50-5.90) M/uL Hgb (13.0-17.0) g/dL Hct (38.0-50.0) % MCV (80.0-98.0) fL MCH (27.0-32.0) pg MCHC (31.0-37.0) g/dL RDW Std Deviation (28.0-62.0) fl RDW Coeff of Liliya (11.0-15.0) % Plt Count (150-400) K/uL MPV (7.40-12.00) fL Add Manual Diff Neutrophils % (Manual) (48.0-80.0) % Band Neutrophils % % Lymphocytes % (Manual) (16.0-40.0) % Monocytes % (Manual) (0.0-15.0) % Metamyelocytes % % Nucleated RBC % /100WBC Absolute Seg Neuts (1.4-5.7) Band Neutrophils # Lymphocytes # (Manual) (0.6-2.4) Monocytes # (Manual) (0.0-0.8) Absolute Metamyelocyte Nucleated RBCs # K/uL Lactate 4.4 H* (0.20-2.00) mmol/L Sodium (136-148) mmol/L Potassium (3.5-5.1) mmol/L Chloride (98-107) mmol/L Carbon Dioxide (21.0-32.0) mmol/L BUN (7.0-18.0) mg/dL Creatinine (0.8-1.3) mg/dL Est Cr Clr Drug Dosing mL/min Estimated GFR (MDRD) ml/min Glucose (74-106) mg/dL Hemoglobin A1c (4.5-6.2) % Calcium (8.5-10.1) mg/dL Phosphorus (2.6-4.7) mg/dL Magnesium (1.8-2.4) mg/dL Total Bilirubin (0.2-1.0) mg/dL AST (15-37) IU/L ALT (14-63) IU/L Alkaline Phosphatase (46-116) U/L Creatine Kinase (26-308) U/L Troponin I (0.000-0.056) ng/mL Total Protein (6.4-8.2) g/dL Albumin (3.4-5.0) g/dL Globulin (2.6-4.0) g/dL Albumin/Globulin Ratio (0.9-1.6) Triglycerides (0-200) mg/dL Cholesterol (50-200) mg/dL LDL Cholesterol, Calc (60-180) mg/dL VLDL Cholesterol (5-55) mg/dL HDL Cholesterol (40-60) mg/dL Cholesterol/HDL Ratio (3.3-6.0) TSH 3rd Generation (0.36-3.74) uIU/mL Meds: Medications Discontinued Medications Generic Name Dose Route Start Last Admin Trade Name Freq PRN Reason Stop Dose Admin Acetaminophen 650 mg 11/07/19 16:19 11/07/19 18:18 Tylenol PO 650 mg Q4H PRN Administration Pain (Mild 1-3)/fever Albuterol/Ipratropium 3 ml 11/07/19 12:09 11/07/19 12:28 Duoneb 3.0-0.5 Mg/3 Ml NEB 11/07/19 12:10 3 ml ONETIME ONE Administration Albuterol/Ipratropium 3 ml 11/07/19 18:00 Duoneb 3.0-0.5 Mg/3 Ml NEB Q4HRRT KEITH Aspirin 325 mg 11/07/19 21:09 11/07/19 21:19 Aspirin PO 11/07/19 21:10 325 mg ONETIME ONE Administration Atorvastatin Calcium 40 mg 11/07/19 21:45 Lipitor PO 11/07/19 21:46 ONETIME ONE Enoxaparin Sodium 100 mg 11/07/19 18:30 11/07/19 18:49 Lovenox SUBCUT 100 mg Q12H KEITH Administration Fentanyl 50 mcg 11/07/19 14:26 11/07/19 14:35 Fentanyl IVPUSH 11/07/19 14:27 50 mcg ONETIME ONE Administration Azithromycin 500 mg/ Sodium 250 mls @ 250 mls/hr 11/07/19 13:45 11/07/19 14: 33 Chloride IV 250 mls/hr ONETIME KEITH Administration Sodium Chloride 1,000 mls @ 999 mls/hr 11/07/19 13:41 11/07/19 13:55 Normal Saline IV 11/07/19 14:41 999 mls/hr .BOLUS ONE Administration Sodium Chloride 1,000 mls @ 999 mls/hr 11/07/19 14:28 11/07/19 14:34 Normal Saline IV 11/07/19 15:28 999 mls/hr .BOLUS ONE Administration Sodium Chloride 1,000 mls @ 999 mls/hr 11/07/19 16:13 11/07/19 18:09 Normal Saline IV 11/07/19 17:13 999 mls/hr STAT ONE Administration Sodium Chloride 1,000 mls @ 150 mls/hr 11/07/19 16:15 11/07/19 18:59 Normal Saline IV 125 mls/hr STAT KEITH Administration Ceftriaxone Sodium/Dextrose 1 50 mls @ 100 mls/hr 11/07/19 16:14 11/07/19 16: 52 gm/ Premix IV 11/07/19 16:43 100 mls/hr ONETIME ONE Administration Ceftriaxone Sodium/Dextrose 1 50 mls @ 100 mls/hr 11/08/19 16:15 gm/ Premix IV Q24H KEITH Azithromycin 500 mg/ Sodium 250 mls @ 250 mls/hr 11/08/19 09:00 Chloride IV DAILY [facility] Magnesium Sulfate 4 gm/ Premix 100 mls @ 25 mls/hr 11/07/19 17:46 11/07/19 18 :50 IV 11/07/19 21:45 25 mls/hr ONETIME ONE Administration Lactated Ringer's 1,000 mls @ 999 mls/hr 11/07/19 21:00 Ringers, Lactated IV ASDIRECTED [facility] Lactated Ringer's 1,000 mls @ 999 mls/hr 11/07/19 21:07 11/07/19 21:19 Ringers, Lactated IV 11/07/19 22:07 999 mls/hr BOLUS ONE Administration Piperacillin Sod/Tazobactam 100 mls @ 100 mls/hr 11/07/19 22:00 11/07/19 21: 43 Sod 4.5 gm/ Sodium Chloride IV 100 mls/hr Q8H KEITH Administration Vancomycin HCl 1.5 gm/ Sodium 500 mls @ 333.333 mls/hr 11/07/19 23:00 Chloride IV Q12H [facility] Ketorolac Tromethamine 60 mg 11/07/19 12:09 11/07/19 12:28 Toradol IM 11/07/19 12:10 60 mg ONETIME ONE Administration Levalbuterol HCl 1.25 mg 11/07/19 18:00 11/07/19 18:50 Xopenex NEB 1.25 mg Q4HRRT KEITH Administration Lidocaine 700 mg 11/07/19 12:54 11/07/19 13:21 Lidoderm 5% TOP 11/07/19 12:55 700 mg ONETIME ONE Administration Lorazepam 1 mg 11/07/19 12:55 11/07/19 13:21 Ativan PO 11/07/19 12:56 1 mg ONETIME ONE Administration Lorazepam 1 mg 11/07/19 21:46 Ativan IVPUSH 11/07/19 21:47 ONETIME ONE Morphine Sulfate 2 mg 11/07/19 17:47 11/07/19 18:48 Morphine IVPUSH 2 mg Q4H PRN Administration Pain (severe 7-10) Morphine Sulfate 4 mg 11/07/19 21:12 11/07/19 21:35 Morphine IVPUSH 11/07/19 21:13 4 mg ONETIME ONE Administration Ondansetron HCl 4 mg 11/07/19 16:19 Zofran Odt PO Q4H PRN nausea, able to take PO Ondansetron HCl 4 mg 11/07/19 16:19 Zofran IVPUSH Q4H PRN Nausea Vancomycin HCl 1,496.85 mg 11/07/19 21:15 Vancomycin 15 mg/kg (1496.85 mg) IV Q12H [facility] Departure - Departure Time of Disposition: 16:57 Disposition: Admitted As Inpatient 67 Condition: Fair Clinical Impression: Chest pain, atypical Pneumonia Qualifiers: Pneumonia type: due to unspecified organism Laterality: right Lung location: middle lobe of lung Qualified Code(s): J18.9 - Pneumonia, unspecified organism - Discharge Information Sepsis Event Note - Evaluation Sepsis Screening Result: No Definite Risk - Focused Exam Date Exam was Performed: 11/09/19 Time Exam was Performed: 00:45
[2019-11-07] MEDS ORDERED: Lidocaine 5% 700 MG Patch TOP ONE (12:54)
[2019-11-07] MEDS ORDERED: LORazepam 1 MG Tab PO ONE (12:55)
[2019-11-07] MEDS ORDERED: Sodium Chloride 0.9% 1,000 ML IV ONE ×3 (13:41→16:13)
[2019-11-07] MEDS ORDERED: Azithromycin 500 MG in Sodium Chloride 0.9% 250 ML IV SCH (13:45)
--- NOTE | 2019-11-07 13:47 | CR ---
Chest: Frontal view of the chest was obtained. Comparison: Previous chest x-ray of 09/19/19. Multiple nodular type densities are seen within the chest. Since this is an interval change from previous exam, findings are most likely from a nodular type of pneumonia. Heart size and mediastinum are within normal limits for portable technique. Bony structures are diffusely intact. Impression: 1. Diffuse nodular change throughout both sides of the chest most likely representing nodular type of pneumonia recommend follow-up study after clinical therapy is complete to make sure findings resolved. 2.. No additional abnormality is appreciated. Diagnostic code #5 This report was dictated in MDT
[2019-11-07] MEDS ORDERED: fentaNYL 50 MCG/ML SDV IVPUSH ONE (14:26)
[2019-11-07 15:05] LABS: CARBON DIOXIDE,CO2 21.9 mmol/L (21.0-32.0); POTASSIUM,K 3.7 mmol/L (3.5-5.1)
[2019-11-07] MEDS ORDERED: cefTRIAXone 1 GM in Premix Bag 1 BAG IV ONE (16:14)
[2019-11-07] MEDS ORDERED: Acetaminophen 325 MG Tab PO PRN (16:19)
[2019-11-07] MEDS ORDERED: Ondansetron 4 MG Tab.DIS PO PRN (16:19)
[2019-11-07] MEDS ORDERED: Ondansetron 4 MG/2 ML SDV IVPUSH PRN (16:19)
--- NOTE | 2019-11-07 16:27 | PCM.HP.2 ---
<Jeff Chandler M - Last Filed: 11/07/19 18:23> H&P History of Present Illness - General Date of Service: 11/07/19 Admit Problem/Dx: Admission Diagnosis/Problem Admission Diagnosis/Problem Pneumonia Source of Information: Patient History Limitations: Reports: No Limitations - History of Present Illness Initial Comments - Free Text/Narative: 29-year-old male presents complaining of cough and shortness of breath for the past 1 day. He has a PMH of HTN. Patient reports that since yesterday, he has had shortness of breath, productive cough and fever check at home as high as 103 F. He also complains of chest tightness, diarrhea and abdominal cramps. He does report that he returned from [place] approximately 2 weeks ago. He denies being around any known sick contacts. Of note, patient presented to the ER multiple times over the past few days complaining of right shoulder pain after lifting heavy furniture a few days ago. Right shoulder x-ray done on 11/05/19 showed no acute fractures. Patient denies any blurry vision, nausea, vomiting, pain on urination, blood in urine, blood in stool, numbness or tingling in extremities. He denies any alcohol, tobacco or illicit drug use. In the ER, CXR showed bilateral nodular pneumonia. WBC count 11.8, lactate 4.4, creatinine 1.8 and troponin was 0.057. EKG showed sinus tachycardia. Influenza test negative. COVID19 test pending. Patient given 2 L IV NS, blood cultures obtained and given dose of IV azithromycin. Patient admitted for further evaluation and treatment. back Pain Score (Numeric/FACES): 10 - Related Data Allergies/Adverse Reactions: Allergies Allergy/AdvReac Type Severity Reaction Status Date / Time No Known Allergies Allergy Verified 11/07/19 12:10 Home Medications: Home Meds Pantoprazole Sodium [Protonix] 40 mg PO DAILY #14 tablet. 09/15/19 [Rx] Diclofenac Sodium [Voltaren] 75 mg PO BIDMEALS PRN #15 tab.cr 11/05/19 [Rx] Past Medical History - Past Health History Medical/Surgical History: Denies Medical/Surgical History Cardiovascular History: Reports: None Respiratory History: Reports: None Gastrointestinal History: Reports: GERD Musculoskeletal History: Reports: None Endocrine/Metabolic History: Reports: None - Infectious Disease History Infectious Disease History: Reports: None Social & Family History - Family History Family Medical History: Noncontributory - Tobacco Use Smoking Status *Q: Never Smoker - Caffeine Use Caffeine Use: Reports: Coffee, Energy Drinks, Soda, Tea - Recreational Drug Use Recreational Drug Use: No H&P Review of Systems - Review of Systems: Review Of Systems: Comprehensive ROS is negative, except as noted in HPI. Exam - Exam Exam: See Below - Vital Signs Vital Signs: Last Vital Signs Temp 98.3 F 11/07/19 12:36 Pulse 90 11/07/19 13:25 Resp 18 11/07/19 13:25 BP 126/60 11/07/19 13:25 Pulse Ox 96 11/07/19 13:25 Weight: 99.79 kg - Exam General: Alert, Oriented, Other (moderate distress, restless, anxious) HEENT: Conjunctiva Clear, EOMI, Hearing Intact, Pupils Equal, Other (pharyngeal erythema) Neck: Supple, Trachea Midline Lungs: Other (quiet breath sounds bilaterally) Cardiovascular: Regular Rhythm, Tachycardia GI/Abdominal Exam: Normal Bowel Sounds, Soft, Non-Tender, No Distention Extremities: Normal Inspection, No Pedal Edema Peripheral Pulses: 2+: Radial (L), Radial (R) Skin: Warm, Dry, Intact Neurological: Cranial Nerves Intact, Strength Equal Bilateral, Normal Speech, Normal Tone Neuro Extensive - Mental Status: Alert, Oriented x3 Psychiatric: Alert, Anxious - Patient Data Lab Results Last 24 hrs: Laboratory Results - last 24 hr 11/07/19 11/07/19 11/07/19 Range/Units 13:54 13:54 14:02 WBC 11.84 H (4.0-11.0) K/uL RBC 4.32 L (4.50-5.90) M/uL Hgb 12.3 L (13.0-17.0) g/dL Hct 36.9 L (38.0-50.0) % MCV 85.4 (80.0-98.0) fL MCH 28.5 (27.0-32.0) pg MCHC 33.3 (31.0-37.0) g/dL RDW Std Deviation 44.2 (28.0-62.0) fl RDW Coeff of Liliya 14 (11.0-15.0) % Plt Count 213 (150-400) K/uL MPV 10.80 (7.40-12.00) fL Add Manual Diff YES Neutrophils % (Manual) 59 (48.0-80.0) % Band Neutrophils % 22 % Lymphocytes % (Manual) 11 L (16.0-40.0) % Monocytes % (Manual) 7 (0.0-15.0) % Metamyelocytes % 1 % Nucleated RBC % 0.0 /100WBC Absolute Seg Neuts 7.0 H (1.4-5.7) Band Neutrophils # 2.6 Lymphocytes # (Manual) 1.3 (0.6-2.4) Monocytes # (Manual) 0.8 (0.0-0.8) Absolute Metamyelocyte 0.1 Nucleated RBCs # 0 K/uL Lactate 4.4 H* (0.20-2.00) mmol/L Sodium 134 L (136-148) mmol/L Potassium 3.7 (3.5-5.1) mmol/L Chloride 99 (98-107) mmol/L Carbon Dioxide 21.9 (21.0-32.0) mmol/L BUN 27 H (7.0-18.0) mg/dL Creatinine 1.8 H (0.8-1.3) mg/dL Est Cr Clr Drug Dosing 63.09 mL/min Estimated GFR (MDRD) 45.2 ml/min Glucose 162 H (74-106) mg/dL Calcium 8.6 (8.5-10.1) mg/dL Total Bilirubin 1.2 H (0.2-1.0) mg/dL AST 36 (15-37) IU/L ALT 38 (14-63) IU/L Alkaline Phosphatase 70 (46-116) U/L Troponin I 0.057 H (0.000-0.056) ng/mL Total Protein 6.9 (6.4-8.2) g/dL Albumin 2.6 L (3.4-5.0) g/dL Globulin 4.3 H (2.6-4.0) g/dL Albumin/Globulin Ratio 0.6 L (0.9-1.6) Result Diagrams: 11/07/19 13:54 11/07/19 13:54 Darron Results Last 24 hrs: Microbiology 11/07/19 14:45 Influenza Type A Antigen Screen - Final Nasopharyngeal Swab NEGATIVE INFLUENZA A VIRUS AG REFERENCE RANGE: NEGATIVE Influenza Type B Antigen Screen - Final NEGATIVE INFLUENZA B VIRUS AG REFERENCE RANGE: NEGATIVE 11/07/19 14:12 Anaerobic Blood Culture - Final Blood - Venous - Lab Draw Sepsis Event Note - Evaluation Sepsis Screening Result: No Definite Risk - Focused Exam Vital Signs: Vital Signs Temp Pulse Resp BP Pulse Ox 11/07/19 13:25 90 18 126/60 96 11/07/19 12:36 98.3 F 110 H 18 126/54 L 97 11/07/19 12:11 97.3 F 109 H 20 125/68 97 Date Exam was Performed: 11/07/19 Time Exam was Performed: 18:23 Problem List Initiated/Reviewed/Updated: Yes Orders Last 24hrs: Active Orders 24 hr Category Date Time Status Admission Status [Patient Status] [ADT] Stat ADT 11/07/19 15:34 Active Antiembolic Devices [RC] PER UNIT ROUTINE Care 11/07/19 16:20 Ordered EKG 12 Lead [EKG Documentation Completion] [RC] STAT Care 11/07/19 15:33 Active Oxygen Therapy [RC] PRN Care 11/07/19 16:19 Ordered RT Aerosol Therapy [RC] ASDIRECTED Care 11/07/19 12:10 Active Up ad Tory [RC] ASDIRECTED Care 11/07/19 16:19 Ordered VTE/DVT Education [RC] PER UNIT ROUTINE Care 11/07/19 16:19 Ordered Vital Signs [RC] Q4H Care 11/07/19 16:19 Ordered Regular Diet [DIET] Diet 11/07/19 Lunch Ordered CBC WITH AUTO DIFF [HEME] AM Lab 11/08/19 05:11 Ordered COMPREHENSIVE METABOLIC PN,CMP [CHEM] AM Lab 11/08/19 05:11 Ordered CORONAVIRUS COVID-19 PCR PHL [MREF] Stat Lab 11/07/19 14:45 Received CULTURE BLOOD [BC] Stat Lab 11/07/19 14:02 Received CULTURE BLOOD [BC] Stat Lab 11/07/19 14:12 Results CULTURE SPUTUM + SMEAR [RM] Urgent Lab 11/07/19 16:12 Ordered DRUG SCREEN, URINE [URCHEM] Urgent Lab 11/07/19 16:11 Ordered LACTATE WITH REFLEX [BG] Q5H Lab 11/07/19 19:00 Ordered LACTATE WITH REFLEX [BG] Q5H Lab 11/08/19 00:00 Ordered LACTATE WITH REFLEX [BG] Q5H Lab 11/08/19 05:00 Ordered LEGIONELLA ANTIGEN [MREF] Urgent Lab 11/07/19 16:12 Ordered STREP PNEUMONIAE ANTIGEN [MREF] Urgent Lab 11/07/19 16:12 Ordered TROPONIN I [CHEM] Q3H Lab 11/07/19 17:00 Ordered TROPONIN I [CHEM] Q3H Lab 11/07/19 20:00 Ordered UA RFX DARRON AND CULT IF INDIC [URIN] Urgent Lab 11/07/19 16:11 Ordered Acetaminophen [Tylenol] Med 11/07/19 16:19 Ordered 650 mg PO Q4H PRN Azithromycin [Zithromax] 500 mg Med 11/08/19 09:00 Ordered Sodium Chloride 0.9% [Normal Saline (AdvBag)] 250 ml IV DAILY Azithromycin [Zithromax] 500 mg Med 11/07/19 13:45 Active Sodium Chloride 0.9% [Normal Saline (AdvBag)] 250 ml IV ONETIME Ondansetron [Zofran ODT] Med 11/07/19 16:19 Ordered 4 mg PO Q4H PRN Ondansetron [Zofran] Med 11/07/19 16:19 Ordered 4 mg IVPUSH Q4H PRN Sodium Chloride 0.9% [Normal Saline] 1,000 ml Med 11/07/19 16:13 Ordered IV STAT Sodium Chloride 0.9% [Normal Saline] 1,000 ml Med 11/07/19 16:15 Ordered IV STAT cefTRIAXone [Rocephin in Dextrose,Iso-Osm 1 GM/50 ML] 1 Med 11/07/19 16:14 Ordered gm Premix Bag 1 bag IV ONETIME cefTRIAXone [Rocephin in Dextrose,Iso-Osm 1 GM/50 ML] 1 Med 11/08/19 16:15 Ordered gm Premix Bag 1 bag IV Q24H Blood Culture x2 Reflex Set [OM.PC] Stat Oth 11/07/19 13:42 Ordered Isolation [COMM] Stat Oth 11/07/19 16:18 Ordered Sequential Compression Device [OM.PC] Per Unit Routine Oth 11/07/19 16:20 Ordered Resuscitation Status Routine Resus Stat 11/07/19 16:19 Ordered Medication Orders Acetaminophen (Tylenol) 650 mg PO Q4H PRN PRN Reason: Pain (Mild 1-3)/fever Azithromycin 500 mg/ Sodium (Chloride) 250 mls @ 250 mls/hr IV ONETIME KEITH Last Admin: 11/07/19 14:33 Dose: 250 mls/hr Sodium Chloride (Normal Saline) 1,000 mls @ 999 mls/hr IV STAT ONE Stop: 11/07/19 17:13 Sodium Chloride (Normal Saline) 1,000 mls @ 125 mls/hr IV STAT KEITH Ceftriaxone Sodium/Dextrose 1 (gm/ Premix) 50 mls @ 100 mls/hr IV ONETIME ONE Stop: 11/07/19 16:43 Ceftriaxone Sodium/Dextrose 1 (gm/ Premix) 50 mls @ 100 mls/hr IV Q24H KEITH Azithromycin 500 mg/ Sodium (Chloride) 250 mls @ 250 mls/hr IV DAILY KEITH Ondansetron HCl (Zofran Odt) 4 mg PO Q4H PRN PRN Reason: nausea, able to take PO Ondansetron HCl (Zofran) 4 mg IVPUSH Q4H PRN PRN Reason: Nausea Assessment/Plan Comment:: Assessment and Plan: 1. Severe sepsis secondary to community acquired pneumonia with suspicion of COVID19. - Admit to med/surg. Patient received 2 L IV NS bolus in ER. Will give additional 1 L IV NS bolus to complete 30 ml/kg bolus. Will then run IV NS maintenance fluids at 125 cc/hr. Blood cultures pending. CXR showed bilateral nodular pneumonia. Will start IV ceftriaxone and IV azithromycin. Lactate on admission was 4.4, will repeat lactate and monitor. Will check sputum cultures, urine strep. pneumonia and legionella antigen. Influenza negative. COVID19 test pending. Will also order UDS. 2. Elevated troponin likely secondary to demand ischemia: - Initial troponin was mildly elevated at 0.057. Repeat troponin is 0.096. EKG on admission showed sinus tachycardia. Will trend troponins q3h. Keep patient on telemetry. Will start lovenox 1 mg /kg q12. 3. YESICA secondary to #1: - Patient on IV fluids. Will monitor. 4. Hypomagnesemia: - Will replete with IV mag sulfate 4 g. Recheck with AM labs. 5. Right shoulder pain: - Shoulder x-ray from 11/05/19 showed no acute fracture. Consider MRI. 6. Past medical history of HTN: - Resume home medications. 7. DVT prophylaxis: SCD's. <Herminia Garber - Last Filed: 11/15/19 15:11> H&P History of Present Illness - General Admit Problem/Dx: Admission Diagnosis/Problem Admission Diagnosis/Problem Pneumonia Exam - Vital Signs Vital Signs: Last Vital Signs Temp 37.3 C 11/07/19 20:00 Pulse 130 H 11/07/19 20:00 Resp 22 H 11/07/19 20:00 BP 116/48 L 11/07/19 20:00 Pulse Ox 91 L 11/07/19 20:00 - Patient Data Result Diagrams: 11/07/19 13:54 11/07/19 13:54 Assessment/Plan Comment:: . I performed history and physical exam of this patient independently and agree with the above outlined management plan that was discussed with the resident in detail. Concern of COVID due to travel history and presentation, , troponin elevated, has ongoing chest pain which has slightly improved, troponin leak is minimal will continue to trend Q3H, but will keep a very low threshold for cardiac intervention/ transfer due to concern of possible Myocarditis due to COVID_19 vs ACS. Recheck lactate after fluid resuscitation. BP is stable for now , cont IV antibiotics.
[2019-11-07] MEDS: Sodium Chloride 0.9% 1,000 ML IV SCH ×2 (16:52→18:59)
[2019-11-07] MEDS ORDERED: Magnesium Sulfate/Water 4 GM in Premix Bag 1 BAG IV ONE (17:46)
[2019-11-07] MEDS ORDERED: Morphine 2 MG/ML SYRINGE IVPUSH PRN (17:47)
[2019-11-07] MEDS ORDERED: Levalbuterol HCl 1.25 MG/3 ML Neb NEB SCH (18:00)
[2019-11-07] MEDS ORDERED: Albuterol/Ipratropium 3.0-0.5 MG/3 ML Neb Soln NEB SCH (18:00)
[2019-11-07] MEDS ORDERED: Enoxaparin 100 MG/1 ML Syringe SUBCUT SCH (18:30)
[2019-11-07 19:00] LABS: HEMOGLOBIN A1C 5.2 % (4.5-6.2)
[2019-11-07] MEDS ORDERED: Lactated Ringers 1,000 ML IV SCH (21:00)
[2019-11-07] MEDS ORDERED: Lactated Ringers 1,000 ML IV ONE (21:07)
[2019-11-07] MEDS ORDERED: Aspirin 325 MG Tab PO ONE (21:09)
[2019-11-07] MEDS ORDERED: Morphine 4 MG/ML Syringe IVPUSH ONE (21:12)
--- NOTE | 2019-11-07 21:14 | PCM.SN ---
- Free Text/Narrative Note: patients troponin continued to trend up, had active chest pain, EKG showed some non specific ST changes, Lacate was not improving, was tachypneic, tachycardiac , patient is being transferred to [place] for further care due to concern on ongoing ACS
[2019-11-07] MEDS ORDERED: Vancomycin 500 MG SDV IV SCH (21:15)
[2019-11-07] MEDS ORDERED: atorvaSTATin 40 MG Tab PO ONE (21:45)
[2019-11-07] MEDS ORDERED: LORazepam 2 MG/ML SDV IVPUSH ONE (21:46)
[2019-11-07] MEDS ORDERED: Piperacillin/Tazobactam 4.5 GM in Sodium Chloride 0.9% 100 ML IV SCH (22:00)
[2019-11-07] MEDS ORDERED: Vancomycin 1.5 GM in Sodium Chloride 0.9% 500 ML IV SCH (23:00)
[2019-11-08] MEDS ORDERED: Azithromycin 500 MG in Sodium Chloride 0.9% 250 ML IV SCH (09:00)
[2019-11-08] MEDS ORDERED: cefTRIAXone 1 GM in Premix Bag 1 BAG IV SCH (16:15)
== END 2019-11-07 21:55 | DRG 871 ==
LOC: MW.ED 12:07 → MW.MS 15:34
PROVIDERS: ADMIT Student in an Organized Health Care Education/Training Program; ATTEND Student in an Organized Health Care Education/Training Program
DX: A41.9 Sepsis, unspecified organism (principal); J18.9 Pneumonia, unspecified organism; I24.8 Other forms of acute ischemic heart disease; N17.9 Acute kidney failure, unspecified; R65.20 Severe sepsis without septic shock; E83.42 Hypomagnesemia; M25.511 Pain in right shoulder; I10 Essential (primary) hypertension; K21.9 Gastro-esophageal reflux disease without esophagitis; Z79.899 Other long term (current) drug therapy; Z20.828 Contact with and (suspected) exposure to other viral communicable diseases
CPT/HCPCS: 36415; 71045; 71045-26; 80053; 80061; 82550; 83036; 83605; 83735; 84100; 84443; 84484; 85025; 87040; 87077; 87186; 87804; 93005; 94640; 96361; 96365; 96372; 96375; 99284; 99285-25; A9270-GY; J0456; J0696; J1650; J1885; J2270; J2543; J3010; J3475; J7030; J7050; J7120; J7612-GY; J7620-GY; U0001; U0002